=== PATIENT | female | born 1960 | race Caucasian/White ===

== ENCOUNTER → 2017-11-08 08:39 | Outpatient (POV) | payer BC, SELFPAY | PROVIDERS: PCP Family Medicine; Visit Provider Dermatology | DX: Z00.00 Encounter for general adult medical examination without abnormal findings (principal) ==

== ENCOUNTER → 2018-02-21 09:22 | Outpatient (CLI) | payer BC, SELFPAY ==
--- NOTE | 2018-02-21 09:28 | MM_ITS ---
MM Dig screening mamm BI w/CAD CAD Screening ORDERING PHYSICIAN : Shahzad Duran MD PATIENT AGE: 57 years GENDER: Female INDICATION: 57-year-old. Does taking female hormones. No new complaints. Noncontributory family history TECHNIQUE: Standard CC and MLO images were obtained. R2 CAD reviewed. COMPARISON: Previous mammograms: Left mammogram August: Bilateral mammogram November 2015, 2014 & 2013 & 2012, and right mammogram 2010 FINDINGS: Moderate density breast bilaterally with no dominant mass or suspicious calcifications either breast. Mild similar to previous study, one year recommended. RIGHT BREAST:No prominent findings. There is a small just over 4 mm area focal low density inferior right breast with irregular margins. On reviewing multiple previous studies I suspect more likely a summation shadow; likely similar feature & appearance dating back to 2012.- But this is density is slightly larger & more apparent today.. Also note Stable small calcification is posterior margin again noted as reference point. Difficult to exclude some small calcifications within this area on this MLO view. Recommend patient return for additional views.: ... Spot magnification 90 degree view... And spot nonmagnification MLO images.... & And since this area clearly seen on cc view would suggest nonmagnification Cc views, performed in both slight lateral & slight medial to mid axis of breast.. LEFT BREAST:No new findings Again small area nodularity at the medial left breast seen similar to December 2016 and 2014.. Pancreas slightly smaller today than on last years study. Compatible with small cyst seen here on 2016 ultrasound IMPRESSION: 1. RIGHT BREAST:. Recommend spot views of area noted at inferior right breast: Small just over 4 mm area of focal density with irregular margins at the inferior right breast on today's MLO view. May merely be a summation shadow but appears more focal and more evident today than previous studies.. Also Cannot exclude some tiny faint calcifications here.... Additional spot views recommended as prescribed in the text . 2. LEFT BREAST stable appearance. Follow-up left mammogram 1 year BI-RADS Category: 0 Need Additional Imaging Evaluaiton. RECOMMENDED FOLLOW-UP: IMM - IMMEDIATE FOLLOW-UP RECOMMENDED (A letter has been sent to the patient regarding results of the study.)
== END ==
PROVIDERS: PCP Family Medicine; Visit Provider Family Medicine
DX: Z12.31 Encounter for screening mammogram for malignant neoplasm of breast (principal)
CPT/HCPCS: 77067

== ENCOUNTER → 2018-03-04 14:18 | Outpatient (CLI) | payer BC, SELFPAY ==
--- NOTE | 2018-03-04 14:23 | MM_ITS ---
MM Dig mamm DX unilat RT CAD CAD Screening ORDERING PHYSICIAN : Shahzad Duran MD PATIENT AGE: 57 years GENDER: Female COMPARISON: Previous mammograms: 2016 2015 2014 INDICATION: New density inferior right breast. Questionable calcification here DIAGNOSTIC RIGHT MAMMOGRAM with Spot views: Technique: CC, MLO, magnification 90 degree and additional Spot performed. Findings: The small nodular density at the inferior right breast is less evident on today's spot views. I believe it was merely exaggerated by overlying densities and summation shadow the recent screening mammogram study. It appears compatible with older studies from 2016 and 2014. Can be followed in one year . No significant calcifications are seen here nor elsewhere at right breast However these added images do reveal new 5 mm round density at 12:00 central breast.- Ultrasound was performed to further evaluate this. & confirm small cyst. ========= ULTRASOUND RIGHT BREAST including axillary survey Ultrasound entire breast performed including a including evaluation lymph nodes at right axilla At 12:00 there is a small 5.4 mm ovoid benign-appearing cystic area. Smooth powell good through transmission of this matches the round density seen on today's additional mammogram views . Survey of the remainder the right breast shows no additional significant findings scattered benign axillary lymph nodes observed IMPRESSION: ---- 1. No area of concern inferior right breast. Follow-up in one year adequate Today's additional mammogram images decreased concern regarding the previously question density at the inferior right breast., This density was merely exaggerated by summation shadow on previous screening study. Follow-up in one year adequate 2. Small round 5.5 mm cyst at 12:00 is seen on mammogram and then subsequently confirmed on ultrasound. Benign feature not of concern BI-RADS Category: 2 Benign Finding(s) RECOMMENDED FOLLOW-UP: 1YR - 1 YEAR FOLLOW-UP (A letter has been sent to the patient regarding results of the study.)
== END ==
PROVIDERS: PCP Family Medicine; Visit Provider Family Medicine
DX: R92.8 Other abnormal and inconclusive findings on diagnostic imaging of breast (principal)
CPT/HCPCS: 76641; 77065

== ENCOUNTER → 2018-08-08 10:49 | Outpatient (CLI) | payer BC, SELFPAY ==
--- NOTE | 2018-08-08 10:52 | XR_ITS ---
EXAM: XR lumbar spine min 4V HISTORY: ITS.REASON: LOW BACK PAIN ORDERING PHYSICIAN: Shahzad Duran MD PATIENT AGE: 58 years COMPARISON: None FINDINGS: Minimal lumbar curvature convex left. There is mild degenerative disc disease at L4-5 and L5-S1 and there is 4 mm anterolisthesis of L4. No fracture or dislocation. No lytic or blastic change. Facet hypertrophy at L4-5 and L5-S1 IMPRESSION: Mild degenerative disc disease L4-L5 and L5-S1 with mild anterolisthesis of L4 with associated facet arthritic change
== END ==
PROVIDERS: PCP Family Medicine; Visit Provider Family Medicine
DX: M54.5 Low back pain (principal)
CPT/HCPCS: 72110

== ENCOUNTER → 2018-11-12 08:25 | Outpatient (POV) | payer BC, SELFPAY | PROVIDERS: Visit Provider Dermatology | DX: Z00.00 Encounter for general adult medical examination without abnormal findings (principal) ==

== ENCOUNTER → 2018-12-12 10:17 | Outpatient (CLI) | payer BC, SELFPAY ==
--- NOTE | 2018-12-12 10:23 | XR_ITS ---
XR shoulder LT min 2V HISTORY: ITS.REASON: ACUTE PAIN IN LT SHOULD ORDERING PHYSICIAN: Shahzad Duran MD PATIENT AGE: 58 years Comparison: None FINDINGS: No fracture or dislocation. No lytic or blastic change. There is normal mineralization. The joint spaces are well-preserved. No significant degenerative/arthritic changes. No erosive changes evident. IMPRESSION: Negative, no acute finding
== END ==
PROVIDERS: PCP Family Medicine; Visit Provider Family Medicine
DX: M25.512 Pain in left shoulder (principal)
CPT/HCPCS: 73030

== ENCOUNTER → 2019-03-07 15:18 | Outpatient (CLI) | payer BC, SELFPAY ==
--- NOTE | 2019-03-07 15:31 | MM_ITS ---
MM Dig screening mamm BI w/CAD CAD Screening COMPARISON: Digital mammograms with CAD 02/21/2018 and additional views right breast 03/04/2018 INDICATION: There is no personal or family history of breast cancer TECHNIQUE: Standard CC and MLO images were obtained. R2 CAD reviewed. FINDINGS: Moderate diffuse fibroglandular densities are seen in the central portions of both breast and the findings are bilateral and symmetrical. The nodular density seen just deep to the nipple the right breast on the previous additional views in February 2018 is less prominent. There is no new or suspicious lesion and there are no suspicious microcalcifications. IMPRESSION: Moderate diffuse breast density with no suspicious lesion seen BI-RADS Category: 1 Negative RECOMMENDED FOLLOW-UP: 1YR - 1 YEAR FOLLOW-UP (A letter has been sent to the patient regarding results of the study.)
--- NOTE | 2019-03-07 15:32 | US_ITS ---
US breast RT complete INDICATION: Follow-up abnormal ultrasound ORDERING PHYSICIAN: Shahzad Duran MD PATIENT AGE: 58 years COMPARISON: 03/04/2018 TECHNIQUE: Right breast ultrasound with axilla FINDINGS: There is a 4 mm cyst at 12:00 similar to the previous exam. No suspicious nodules evident. Small nodes are present in the axilla. IMPRESSION: Benign findings, 4 mm cyst at 12:00 BI-RADS Category: 2 Benign Finding(s) RECOMMENDED FOLLOW-UP: 1YR - 1 YEAR FOLLOW-UP (A letter has been sent to the patient regarding results of the study.)
== END ==
PROVIDERS: PCP Family Medicine; Visit Provider Family Medicine
DX: Z12.31 Encounter for screening mammogram for malignant neoplasm of breast (principal); N60.01 Solitary cyst of right breast
CPT/HCPCS: 76641; 77067

== ENCOUNTER → 2019-10-14 08:28 | Outpatient (CLI) | payer BC, SELFPAY ==
--- NOTE | 2019-10-14 08:36 | XR_ITS ---
PROCEDURE: XR DEXA AXIAL SKELETON CLINICAL HISTORY: POST MENOPAUSAL COMPARISON: No exams were available for comparison FINDINGS: L1-L4 density has a T-score -0.2 with a bone density of 1.18 grams/centimeters sq. Lowest density in the hips is in the left femoral neck at 0.889 grams/centimeters sq T-score -1 indicating osteopenia. IMPRESSION: Osteopenia with moderate fracture risk. Treatment advised. Suggest follow-up exam October 2021 Dictated by: Dean Lagos MD 10/14/2019 14:39 Electronically signed by Dean Lagos MD in [place] 10/14/2019 14:39
== END ==
PROVIDERS: PCP Family Medicine; Visit Provider Family Medicine
DX: Z13.820 Encounter for screening for osteoporosis (principal); Z78.0 Asymptomatic menopausal state; M85.89 Other specified disorders of bone density and structure, multiple sites
CPT/HCPCS: 77080

== ENCOUNTER → 2019-11-11 09:51 | Outpatient (POV) | payer BC, SELFPAY | PROVIDERS: Visit Provider Dermatology | DX: Z00.00 Encounter for general adult medical examination without abnormal findings (principal) ==

== ENCOUNTER → 2020-03-09 08:11 | Outpatient (CLI) | payer BC, SELFPAY ==
--- NOTE | 2020-03-09 08:29 | US_ITS ---
PROCEDURE: US BREAST RT COMPLETE CLINICAL INDICATION: CYST OF RIGHT BREAST COMPARISON: BREASTRT US breast RT complete from 03/07/2019 MM DIG SCREENING MAMM BI W/CAD from 03/09/2020 FINDINGS: There is a small hypoechoic cystic-appearing lesion at the 12 o'clock position near the nipple measuring 0.5 x 0.2 by 0.5 cm. There is a small hypoechoic lesion at the 11 o'clock position near the nipple measuring 0.6 by 0.5 x 0.2 cm with a few internal echoes and this may represent a complex cyst. There are 2 normal appearing nodes in the axilla. There is no suspicious solid lesion. IMPRESSION: Stable benign-appearing cyst as described with possible new benign-appearing but probable complex cyst without definite mammogram correlation of either lesion. Recommend the patient continue with yearly screening mammography Dictated by: Dr. Yan Rodriguez MD 03/16/2020 15:[address] Yan Rodriguez MD in [place] 03/16/2020 15:31
--- NOTE | 2020-03-09 08:29 | MM_ITS ---
PROCEDURE: MM DIG SCREENING MAMM BI W/CAD Digital Breast Tomosynthesis Included CLINICAL INDICATION: BREAST CANCER SCREENING There is no personal or family history of breast cancer. The patient recently stopped estrogen treatment 6 months ago COMPARISON: [facility] MM Dig screening mamm BI w/CAD from 02/21/2018 DXRT MM Dig mamm DX unilat RT CAD from 03/04/2018 DIG MAMM-SCREEN KEMAR from 03/07/2019 TECHNIQUE: Standard CC and MLO images and 3D Tomosynthesis was obtained. R2 CAD reviewed. FINDINGS: Moderate diffuse fibroglandular densities are seen in both breasts and the findings are bilateral and symmetrical. Jatinder images were reviewed. There is no suspicious lesion in either breast and no suspicious microcalcifications. IMPRESSION: Stable moderate breast density with no suspicious lesions seen BI-RAD Category: 1 Negative FOLLOW-UP: 1YR 1 Year Follow-up (A letter has been sent to the patient regarding results of the study.) Dictated by: Dr. Yan Rodriguez MD 03/09/2020 16:[address] Yan Rodriguez MD in [place] 03/09/2020 16:54
== END ==
PROVIDERS: PCP Family Medicine; Visit Provider Family Medicine
DX: Z12.31 Encounter for screening mammogram for malignant neoplasm of breast (principal); N60.01 Solitary cyst of right breast
CPT/HCPCS: 76641; 77063; 77067

== ENCOUNTER → 2020-03-23 10:55 | Outpatient (CLI) | payer BC, SELFPAY | PROVIDERS: Visit Provider Urology | DX: R31.0 Gross hematuria (principal) | CPT/HCPCS: 87086 ==

== ENCOUNTER → 2020-04-02 08:47 | Outpatient (CLI) | payer BC, SELFPAY ==
[2020-04-02 09:16] LABS: Blood Urea Nitrogen 24 mg/dl (7-17); Estimated Glomerular Filt Rate 73 ml/min (>60); GFR (African American) 89 ML/MIN (>60)
--- NOTE | 2020-04-02 09:26 | CT_ITS ---
PROCEDURE: CT ABDOMEN PELVIS WO/W CON CLINICAL INDICATION: hematuria Hematuria, UTIs COMPARISON: No exams were available for comparison TECHNIQUE: IV Contrast: 75ML OPTIRAY 350 Oral Contrast none Axial images obtained with sagittal and coronal reformats. All CT scans at the facility use one or more dose reduction, viz: automated exposure control, ma/kV adjustment per patient size (including targeted exams where dose is matched to indication, i.e. head), or iterative reconstruction technique. FINDINGS: LOWER THORAX: No acute finding ABDOMEN & PELVIS: The liver, spleen, adrenal glands, and pancreas have an unremarkable appearance. Unenhanced images show no obvious renal calculi. No ureteral calculi. No hydronephrosis. No renal mass or perinephric fluid collection. 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 There is a mild amount of retained colonic feces. No intestinal obstruction or free air. No evidence of appendicitis or diverticulitis. There has been a prior hysterectomy. Small sclerotic focus involves the right ilium laterally and 1 also of the right femoral neck suggesting small bone islands. There is mild levocurvature of the lumbar spine and there is 5 mm anterolisthesis with degenerative disc disease at L4 on L5. IMPRESSION: 1. No acute finding. No renal or ureteral calculi. 2. 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 Moderate amount of retained colonic feces. Dictated by: Dean Lagos MD 04/02/2020 10:26 Electronically signed by Dean Lagos MD in [facility] 04/02/2020 10:26
== END ==
PROVIDERS: PCP Family Medicine; Visit Provider Urology
DX: R31.0 Gross hematuria (principal)
CPT/HCPCS: 36415; 74178; 82565; 84520; Q9967

== ENCOUNTER → 2020-04-07 11:01 | Outpatient (CLI) | payer BC, SELFPAY ==
[2020-04-07 13:36] LABS: Coronavirus 19 IgG Antibody Negative (Negative)
[2020-04-07 13:37] LABS: Coronavirus 19 IgM Antibody Negative (Negative)
== END ==
PROVIDERS: Visit Provider Urology
DX: Z01.818 Encounter for other preprocedural examination (principal); R31.9 Hematuria, unspecified
CPT/HCPCS: 36415; 86328

== ENCOUNTER 2020-04-08 13:45 | Day surgery (SDC) | payer BC, SELFPAY ==
--- NOTE | 2020-04-06 09:18 | SUR.PREOP ---
04/06/2020. @ 6523--PHONE CALL MADE TO PATIENT. PATIENT UNDERSTANDS THAT LAB WORK AND COVID TESTING NEEDS TO BE COMPLETED @ 1100 on 04/07/2020. PATIENT UNDERSTANDS IF LAB WORK AND COVID-19 TESTS ARE NOT COMPLETED BY 12PM ON THAT DATE, THE SURGERY SCHEDULED WILL BE CANCELLED AND RESCHEDULED FOR ANOTHER TIME.
[2020-04-07 11:43] VITALS: BMI 20.9
[2020-04-08 14:06] VITALS: BP 157/89; PULSE 74; RESP 16; TEMP 36.8; O2SAT 99
[2020-04-08 14:50] VITALS: BP 148/79; PULSE 67; RESP 18; TEMP 36.8; O2SAT 100
--- NOTE | 2020-04-08 15:18 | HMH.OPNOTE ---
Date of procedure: 04/08/20 Pre-op Diagnosis:: Microhematuria Post-op Diagnosis:: Same Procedure performed:: Cystourethroscopy, flexible Surgeon:: Giovani Patton MD Anesthesia: local Estimated blood loss (mL): 0 Clinical Note:: 59-year-old white female with history of microscopic hematuria presents for cystoscopic evaluation today. 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 Operative findings:: Cystoscopic findings were normal Operative note:: Patient taken to the treatment room after informed consent was obtained. On the stretcher she was prepped and draped in the standard surgical fashion in the frog-leg position. 2% lidocaine placed into the urethra. After 5 minutes the flexible cystoscope introduced into the urethral meatus. Passed into the bladder without difficulty and the bladder examined in a systematic fashion. There is no evidence of mucosal normalities, stones, trabeculation or cellule formation. The ureteral orifices were in their normal anatomic position and clear reflux of urine was noted. The urethra was within normal limits as well as the bladder neck. Scope removed and patient tolerated procedure well without complication. Condition: stable Disposition: same day Specimens:: None Complications:: None
== END 2020-04-08 14:55 | disposition home or self-care (01) ==
LOC: OUTP 13:47
PROVIDERS: PCP Family Medicine; Visit Provider Urology
PROC: (CPT 52000; principal; 2020-04-08 14:30)
DX: R31.29 Other microscopic hematuria (principal); D17.79 Benign lipomatous neoplasm of other sites; Z88.2 Allergy status to sulfonamides; Z88.8 Allergy status to other drugs, medicaments and biological substances; Z91.048 Other nonmedicinal substance allergy status; Z79.82 Long term (current) use of aspirin; Z79.899 Other long term (current) drug therapy; M19.90 Unspecified osteoarthritis, unspecified site
CPT/HCPCS: 52000

== ENCOUNTER → 2020-06-25 11:14 | Outpatient (CLI) | payer BC, SELFPAY ==
--- NOTE | 2020-06-25 11:27 | ECG_ITS ---
APPROVED REPORT Exam: Resting ECG HR:79 bpm ECG Measurements Heart Rate 79 AXES NM 150 P 39 QRSd 92 QRS 85 QT 358 T 68 QTc 410 <Conclusion> Normal sinus rhythm RSR' or QR pattern in V1 suggests right ventricular conduction delay Borderline ECG Electronically signed by : Ruben Rosario, 06/25/2020 17:42:53
== END ==
PROVIDERS: PCP Family Medicine; Visit Provider Family Medicine
DX: R00.2 Palpitations (principal)
CPT/HCPCS: 93005

== ENCOUNTER → 2020-08-18 15:49 | Outpatient (CLI) | payer BC, SELFPAY ==
[2020-08-18 16:59] LABS: Basophils % 0.6 % (0.1-2.0); Eosinophils # 0.1 K/mm3 (0.0-0.4); Eosinophils % 1.4 % (0.1-12.0); Hematocrit 38.2 % (37.0-47.0); Hemoglobin 12.2 g/dL (12.2-16.2); Lymphocytes % 27.5 % (10-50); Mean Corpuscular HGB Conc 31.9 g/dL (31.8-35.4); Mean Corpuscular Hemoglobin 29.4 pg (27.0-31.2); Mean Corpuscular Volume 92.2 fl (81-99); Monocytes # 0.4 K/mm3 (0.1-1.0); Neutrophils # 4.7 K/mm3 (1.8-7.8); Neutrophils % 64.6 % (37.0-80.0); Platelet Count 290 K/mm3 (142-424); Red Blood Count 4.14 M/mm3 (4.20-5.40); Red Cell Distribution Width 12.7 % (11.5-17.5); White Blood Count 7.3 K/mm3 (4.8-10.8)
[2020-08-20 14:03] LABS: Covid-19 Nasal PCR Sendout Lex NOT DETECTED
== END ==
PROVIDERS: PCP Family Medicine; Visit Provider Family Medicine
DX: Z03.818 Encounter for observation for suspected exposure to other biological agents ruled out (principal)
CPT/HCPCS: 36415; 85025; 87581; 87633; 87798; U0004

== ENCOUNTER → 2020-12-07 09:22 | Outpatient (POV) | payer BC, SELFPAY | PROVIDERS: Visit Provider Dermatology | DX: Z00.00 Encounter for general adult medical examination without abnormal findings (principal) ==

== ENCOUNTER → 2021-01-18 10:18 | Outpatient (CLI) | payer BC, SELFPAY ==
--- NOTE | 2021-01-18 10:28 | XR_ITS ---
PROCEDURE: XR WRIST RT MIN 3V CLINICAL INDICATION: RT WRIST PAIN COMPARISON: No exams were available for comparison FINDINGS: No fracture or dislocation. No lytic or blastic change. There is normal mineralization. Osteoarthritic changes are present at the 1st metacarpal-carpal joint. Spurring is present involving the trapezium medially Other findings:None. 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
== END ==
PROVIDERS: PCP Family Medicine; Visit Provider Family Medicine
DX: M25.531 Pain in right wrist (principal)
CPT/HCPCS: 73110

== ENCOUNTER 2021-01-24 09:00 | Outpatient (RCR) | payer BC, SELFPAY ==
--- NOTE | 2020-12-20 11:05 | HMH.OTOPEV ---
OT Inpatient Evaluation Rehab OT Outpatient Eval Start: 12/20/20 10:31 Freq: Status: Active Protocol: Document 12/20/20 10:32 RMARSHALL (Rec: 12/20/20 11:02 [facility] [id number]) Electronically Signed By Abigail Hu OT 12/20/20 10:32 Outpatient Therapy Subjective History Subjective History Pt seen this date for skilled OT eval. Pt reports that she hyperextended her R thumb February 2020. Pt felt a pop during this event. Pt reports that her doctor has given her exercises and she has been wearing a R pre-arie thumb spica splint. Pt reports that her wrist range of motion is decreased. Pt reports that she experiences sharp pain in R wrist on radial aspect. Pt reports that she golfs frequently. She has not seen an orthopedic doctor yet; she has not had a MRI or X-ray yet . R Thumb AROM Short term goal: Abduction: 50 R Thumb AROM supervisor intermediates goal: Abduction: 70 R Thumb IP Short term goal: Flex:70 R thumb IP lobsterman goal: Flex: 80 Chief Complaint Pain Symptom Type Ache,Sharp,Tingling,Shooting Symptoms Relieved By Rest/Positioning,Brace/Support Symptoms Aggravated By Physical Activity,Lifting Prior Functional Limitations None Current Functional Limitations Lifting,Housework,Desk Work/ Reading,Driving,Sleeping Symptom Description Intermittent,Activity Dependent Level of pain today (0-10) 1 Pain scale - at its best (0-10) 1 Pain scale - at its worst (0-10) 5 Wrist/Hand Eval Wrist Range of Motion Right Wrist Limitations of Range of Motion Muscle Weakness,Pain Wrist Extension Active Range of Motion ( 50 degrees) Wrist Flexion Active Range of Motion ( 65 degrees) Wrist Radial Deviation Active Range of 10 Motion (degrees) Wrist Ulnar Deviation Active Range of 20 Motion (degrees) Thumb Range of Motion Right Thumb Metacarpophalangeal Flexion Active 50 Range of Motion (degrees) Thumb Metacarpophalangeal Extension 0 Active Range of Motion (degrees
== END 2021-01-24 09:05 | disposition home or self-care (01) ==
LOC: OT 09:00
PROVIDERS: PCP Family Medicine; Visit Provider Family Medicine
DX: M25.531 Pain in right wrist (principal)
CPT/HCPCS: 97014; 97035; 97110; 97140; 97164; 97166; G0283

== ENCOUNTER → 2021-03-14 09:56 | Outpatient (CLI) | payer BC, SELFPAY ==
--- NOTE | 2021-03-14 09:58 | MM_ITS ---
PROCEDURE: MM DIG SCREENING MAMM BI W/CAD Digital Breast Tomosynthesis Included CLINICAL INDICATION: SCREENING COMPARISON: MG DMDXUWAL DIG MAMM-DX UNI LT W/AVS W/CAD from 08/08/2017 MG [facility] MM Dig screening mamm BI w/CAD from 02/21/2018 MG DXRT MM Dig mamm DX unilat RT CAD from 03/04/2018 MG DIG MAMM-SCREEN KEMAR from 03/07/2019 MG MM DIG SCREENING MAMM BI W/CAD from 03/09/2020 TECHNIQUE: Standard CC and MLO images and 3D Tomosynthesis was obtained. R2 CAD reviewed. FINDINGS: The breasts are composed of heterogeneously dense fibroglandular tissue, may obscure small masses. There is a focal new asymmetric density noted in the right central breast, 6.5 centimeters behind the nipple, seen on MLO view. This focal area was not visualized on the cc view. Focal glandular asymmetric density noted in the left inner breast is unchanged compared to prior study. IMPRESSION: Asymmetric density in the right central breast on MLO view. BI-RAD Category: 0 Need Additional Imaging Evaluation FOLLOW-UP: Diagnostic mammogram with spot compression images and rolled views. Ultrasound if indicated. (A letter has been sent to the patient regarding results of the study.) Dictated by: Janie Castro 03/15/2021 09:05 Janie Castro in [place] 03/15/2021 09:05
== END ==
PROVIDERS: PCP Family Medicine; Visit Provider Family Medicine
DX: Z12.31 Encounter for screening mammogram for malignant neoplasm of breast (principal)
CPT/HCPCS: 77063; 77067

== ENCOUNTER → 2021-03-29 12:58 | Outpatient (CLI) | payer BC, SELFPAY ==
--- NOTE | 2021-03-29 13:03 | MM_ITS ---
PROCEDURE: MM DIG MAMM DX UNILAT RT CAD Digital Breast Tomosynthesis Included Right breast ultrasound complete CLINICAL INDICATION: ABN MAMM Follow-up asymmetric density COMPARISON: MG DIG MAMM-SCREEN KEMAR from 03/07/2019 US BREASTRT US breast RT complete from 03/07/2019 US US BREAST RT COMPLETE from 03/09/2020 MG MM DIG SCREENING MAMM BI W/CAD from 03/09/2020 MG MM DIG SCREENING MAMM BI W/CAD from 03/14/2021 US US BREAST RT COMPLETE from 03/29/2021 TECHNIQUE: Spot compression views and rolled CC views are obtained along with right breast ultrasound. FINDINGS: The asymmetric density is not redemonstrated on the spot compression views nor the rolled views. Right breast ultrasound: At 12 o'clock near the nipple there is a 5 mm hypoechoic nodule well-circumscribed wider than tall with some low level internal echoes which may be due to a complicated cyst not significantly changed. At 11 o'clock near the nipple there is a hypoechoic 5 x 4 mm nodule. There is some questionable posterior acoustical shadowing.. On the sagittal images the nodule is taller than wide. This does raise some concern as well as a posterior acoustical shadowing. Ultrasound-guided FNA suggested. IMPRESSION: Nodule noted on the mammogram is not demonstrated by ultrasound and appear to compress out on the spot compression views. Ultrasound of the right breast however demonstrates a suspicious nodule at 11 o'clock near the nipple taller than wide with some posterior acoustical shadowing. Suggest ultrasound-guided FNA for further evaluation. If the nodule does not aspirate then, core biopsy could be obtained at the same time. BI-RAD Category: 4 Suspicious Abnormality-Biopsy Considered FOLLOW-UP: BIO Biopsy Recommended (A letter has been sent to the patient regarding results of the study.) Dictated by: Dean Lagos MD 04/05/2021 08:41 Dean Lagos MD in [place] 04/05/2021 08:41
== END ==
PROVIDERS: PCP Family Medicine; Visit Provider Physician Assistant
DX: R92.8 Other abnormal and inconclusive findings on diagnostic imaging of breast (principal)
CPT/HCPCS: 76641; 77061; 77065; G0279

== ENCOUNTER → 2021-04-26 12:29 | Outpatient (CLI) | payer BC, SELFPAY ==
--- NOTE | 2021-04-26 12:37 | US_ITS ---
PROCEDURE: US FNA BREAST CLINICAL INDICATION: ABN MAMM COMPARISON: 03/29/2021 mammogram and ultrasound FINDINGS: Following obtaining informed consent and time-out procedure under aseptic conditions with ultrasound guidance and local anesthesia with 1 percent buffered lidocaine FNA was performed of the right breast nodule at 11 o'clock. No fluid was able to be obtained. Following this, core biopsy was performed x3 into the nodule with an 18 gauge spring-loaded biopsy needle.. Specimen given to pathology. The patient tolerated the procedure well without evidence of immediate complication. Cytology: Rare atypical ductal cells are identified. Suspicious finding. Pathology: Scant fibrous stroma and blood. No atypical ductal hyperplasia in situ or invasive carcinoma. IMPRESSION: Uneventful ultrasound-guided FNA and core biopsy of the right breast nodule at 11 o'clock. The findings are discordant with cytology findings suspicious and pathology findings showing no atypical hyperplasia carcinoma in situ or invasive carcinoma. The FNA and the core biopsy was performed at the same spot with sonographic guidance. Suggest short-term ultrasound follow-up. If the nodule enlarges then a mammotome or surgical biopsy could be considered Dictated by: Dean Lagos MD 05/11/2021 09:18 Dean Lagos MD in [place] 05/11/2021 09:18
== END ==
PROVIDERS: PCP Family Medicine; Visit Provider Family Medicine
DX: D48.61 Neoplasm of uncertain behavior of right breast (principal)
CPT/HCPCS: 10005

== ENCOUNTER → 2021-05-27 12:39 | Outpatient (CLI) | payer BC, SELFPAY ==
--- NOTE | 2021-05-27 12:44 | XR_ITS ---
PROCEDURE: XR CERVICAL SPINE 5V CLINICAL INDICATION: DISORDER OF THE NECK COMPARISON: No exams were available for comparison FINDINGS: No acute fractures or listhesis. Minor degenerative changes of the cervical spine noted with anterior osteophyte formation and facet joint arthropathy. Bone density is normal. Prevertebral soft tissues and the visualized lung apices are clear. IMPRESSION: No acute fractures or listhesis. Dictated by: Janie Castro 05/27/2021 13:40 Janie Castro in [facility] 05/27/2021 13:40
== END ==
PROVIDERS: PCP Family Medicine; Visit Provider Family Medicine
DX: M53.82 Other specified dorsopathies, cervical region (principal)
CPT/HCPCS: 72050

== ENCOUNTER 2021-08-24 09:00 | Outpatient (RCR) | payer BC, SELFPAY | END 2021-08-24 09:05 | disposition home or self-care (01) | LOC: PT 09:00 | PROVIDERS: PCP Family Medicine; Visit Provider Family Medicine | DX: M54.12 Radiculopathy, cervical region (principal); M47.812 Spondylosis without myelopathy or radiculopathy, cervical region | CPT/HCPCS: 97010; 97012; 97014; 97035; 97110; 97163; 97164; G0283 ==

== ENCOUNTER → 2021-09-14 13:03 | Outpatient (CLI) | payer BC, SELFPAY | PROVIDERS: PCP Family Medicine; Visit Provider Nurse Practitioner | DX: Z20.822 Contact with and (suspected) exposure to COVID-19 (principal); U07.1 COVID-19 | CPT/HCPCS: C9803; U0003; U0005 ==

== ENCOUNTER → 2021-10-25 10:30 | Outpatient (CLI) | payer BC, SELFPAY ==
--- NOTE | 2021-10-25 10:34 | US_ITS ---
PROCEDURE INFORMATION: Exam: US Right Breast, Complete Exam date and time: 10/25/2021 10:34 AM Age: 61 years old Clinical indication: Follow-up a biopsied right 11 o'clock axis mass TECHNIQUE: Imaging protocol: Complete ultrasound of all four quadrants of the Right breast and the retroareolar regions, including ultrasound of the axilla when performed. COMPARISON: SD US FNA BREAST 04/26/2021 1:24 PM FINDINGS: Breast: Sonographic images of the right breast including the retroareolar region, all 4 quadrants and the axilla demonstrates a stable hypoechoic mass in the 11 o'clock axis at the site of prior biopsy measuring 0.4 x 0.4 x 0.3 cm in dimension. 0.3 cm right 12 o'clock axis cyst. No architectural distortion or acoustical shadowing. No skin thickening or axillary adenopathy. IMPRESSION: Stable previously biopsied mass in the right 11 o'clock axis.Annual bilateral mammographic screening is recommended in April 2022 unless otherwise clinically indicated. ASSESSMENT: BI-RADS Category 2: Benign
== END ==
PROVIDERS: PCP Family Medicine; Visit Provider Family Medicine
DX: N60.01 Solitary cyst of right breast (principal)
CPT/HCPCS: 76641

== ENCOUNTER → 2021-12-06 11:11 | Outpatient (POV) | payer BC, SELFPAY | PROVIDERS: Visit Provider Dermatology | DX: Z00.00 Encounter for general adult medical examination without abnormal findings (principal) ==

== ENCOUNTER → 2022-04-25 08:23 | Outpatient (CLI) | payer BC, SELFPAY ==
--- NOTE | 2022-04-25 08:30 | MM_ITS ---
PROCEDURE INFORMATION: Exam: US Right Breast, Complete MG Bilateral Screening 3D Mammography Exam date and time: 04/25/2022 8:57 AM Age: 61 years old Clinical indication: Screening. History of benign right biopsy/aspiration of 11 o'clock mass. No family history of breast cancer. TECHNIQUE: Imaging protocol: Complete ultrasound of all four quadrants of the Right breast and the retroareolar regions, including ultrasound of the axilla when performed. Bilateral Screening tomosynthesis and 2D mammography including computer-aided detection (CAD) when performed. COMPARISON: US BREAST RT COMPLETE 10/25/2021 11:32 AM FINDINGS: MAMMOGRAPHY: Breast composition: The breasts are heterogeneously dense, which may obscure small masses. Mass: None. Architectural distortion: None. Calcifications: No suspicious calcifications. Asymmetric density: None. Skin thickening: None. Axillary adenopathy: None. ULTRASOUND: Right sonography, all 4 quadrants, retroareolar and axilla. At 12 o'clock 2 cm from the nipple, benign-appearing 0.4 cm cyst. At 11 o'clock 3 cm from the nipple, stable biopsied/aspirated hypoechoic mass measuring 0.3 by 0.2 by 0.2 cm. Sonographically unremarkable right axillary lymph node. IMPRESSION: No mammographic or sonographic evidence of malignancy. Annual screening is recommended unless otherwise clinically indicated. ASSESSMENT: Screening mammogram BIRADS: BI-RADS Category 1: Negative Overall BIRADS: BI-RADS Category 2: Benign
== END ==
PROVIDERS: PCP Family Medicine; Visit Provider Family Medicine
DX: Z12.31 Encounter for screening mammogram for malignant neoplasm of breast (principal); N60.01 Solitary cyst of right breast; M85.89 Other specified disorders of bone density and structure, multiple sites
CPT/HCPCS: 76641; 77063; 77067

== ENCOUNTER → 2022-04-28 08:55 | Outpatient (CLI) | payer BC, SELFPAY ==
--- NOTE | 2022-04-28 08:58 | XR_ITS ---
FINAL REPORT TECHNIQUE: Bone mineral density was calculated of the lumbar spine and hip. CLINICAL HISTORY: post menopausal COMPARISON: October 14, 2019 FINDINGS: Using L1-4, the bone mineral density of the spine is 0.966 g/cm2, corresponding to T-score of -0.7, which is a decrease in bone mineral density of 8.3% from prior. Using the left hip, the bone mineral density of the femoral neck is 0.656 g/cm2, corresponding to a T-score of -1.7, which is a decrease in bone mineral density of 7.4% from prior. Based on FRAX data, major osteoporotic fracture risk is 8.6%. NOTE: T-score: Standard deviation compared with peak bone mass of young adult mean. *Following the recommendations of the International Society of Bone densitometry, classification of hip BMD is based on the lower of two T-scores; total hip or femoral neck. IMPRESSION: Diminished bone mineral density of the lumbar spine and left hip consistent with osteopenia. Reviewed, Interpreted and Dictated by Bravo Tian III, MD Transcribed by Marj Bee Authenticated and [facility]
== END ==
PROVIDERS: PCP Family Medicine; Visit Provider Family Medicine
DX: Z78.0 Asymptomatic menopausal state (principal)
CPT/HCPCS: 77080

== ENCOUNTER → 2022-06-28 09:08 | Outpatient (CLI) | payer BC, SELFPAY | PROVIDERS: PCP Family Medicine; Visit Provider Surgery | DX: Z01.812 Encounter for preprocedural laboratory examination (principal); Z20.822 Contact with and (suspected) exposure to COVID-19; Z12.11 Encounter for screening for malignant neoplasm of colon | CPT/HCPCS: C9803; U0003; U0005 ==

== ENCOUNTER 2022-06-30 08:22 | Day surgery (SDC) | payer BC, SELFPAY ==
[2022-06-26 11:21] VITALS: BMI 22.2
[2022-06-30 08:35] VITALS: BP 164/98; PULSE 87; RESP 17; TEMP 36.6; O2SAT 98
[2022-06-30 09:40] VITALS: O2SAT 97
--- NOTE | 2022-06-30 09:47 | EXP.ANES.CKL ---
PFSH PFSH Medical History Arthritis Surgical History H/O: hysterectomy Family History Other Diabetes Hypertension Social History Smoking Status: Never smoker second hand exposure: No alcohol intake: never substance use type: denies use current occupational status: retired Travel in the last 8 weeks: None household members: spouse housing: house current occupational exposures/hazards: No caffeine: Yes
--- NOTE | 2022-06-30 10:33 | HMH.SCOPE ---
Procedure: Date: 06/30/22 Patient Date of :: 1960 Procedure Performed:: Colonoscopy with polypectomy using snare and biopsy Indications:: Patient is a 62-year-old female who had undergone previous screening colonoscopy about 10 years ago. She is referred for follow-up screening colonoscopy. Performing Provider:: Bravo Rivas MD Referring Provider:: Shahzad Duran MD Sedation:: MAC sedation Procedure:: Patient was taken to endoscopy procedure room. She was positioned in lateral decubitus position. Adequate intravenous sedation was achieved with anesthesia titration propofol. Variable stiffness Olympus colonoscope was inserted via the anus. Was advanced to the cecum. Colonic preparation was good. Ileocecal valve and appendiceal orifice were clearly identified. Colonoscope was advanced a short distance into the terminal ileum which was grossly normal. Colonoscope was slowly withdrawn through the colon with careful surveillance. Several polyps were encountered. These were removed by a variety of technique. Please see findings below. The most prominent polyp was approximately a 4 to 5 mm sessile polyp at the hepatic flexure. In the rectum there was evidence of some prominent mucosa and several cold biopsies were obtained. Retroflexion within the rectum revealed nonbleeding prolapsing hemorrhoid. Colonoscope was withdrawn. Findings:: 4 to 5 mm polyp at the hepatic flexure Diminutive descending colon polyp removed with cold snare Hyperplastic appearing distal sigmoid polyp x2 removed with cold snare, 1 retrieved Multiple hyperplastic appearing rectosigmoid polyps, 4, removed with cold snare Multiple rectal polyps, 7, appearing hyperplastic, 2 removed with snare and 5 removed with forceps. Prominent mucosa distal rectum multiple cold biopsies obtained Internal hemorrhoids Recommendations:: Follow-up colonoscopy pending pathology Complications:: None immediately apparent Estimated blood obtained (mL): 2
[2022-06-30 10:36] VITALS: BP 102/69; PULSE 74; RESP 16; TEMP 36.2; O2SAT 98
[2022-06-30 10:46] VITALS: BP 106/65; PULSE 64; RESP 16; O2SAT 97
[2022-06-30 10:56] VITALS: BP 113/78; PULSE 62; RESP 16; O2SAT 98
[2022-06-30 11:06] VITALS: BP 129/78; PULSE 58; RESP 16; O2SAT 98
== END 2022-06-30 11:06 | disposition home or self-care (01) ==
PROVIDERS: PCP Family Medicine; Visit Provider Surgery
PROC: 0DJD8ZZ Inspection of Lower Intestinal Tract, Via Natural or Artificial Opening Endoscopic (ICD-10-PCS; CPT 45380; principal; 2022-06-30 09:30)
DX: Z12.11 Encounter for screening for malignant neoplasm of colon (principal); K63.5 Polyp of colon
CPT/HCPCS: 45380; 45385; J2704

== ENCOUNTER → 2022-11-21 09:46 | Outpatient (POV) | payer BC, SELFPAY | PROVIDERS: Visit Provider Dermatology | DX: Z00.00 Encounter for general adult medical examination without abnormal findings (principal) ==

== ENCOUNTER → 2023-04-27 10:48 | Outpatient (CLI) | payer BC, SELFPAY ==
--- NOTE | 2023-04-27 10:52 | MM_ITS ---
PROCEDURE INFORMATION: Exam: MG Bilateral Screening 3D Mammography Exam date and time: 04/27/2023 10:41 AM Age: 62 years old Clinical indication: Screening. No family history of breast cancer. TECHNIQUE: Imaging protocol: Bilateral Screening tomosynthesis and 2D mammography including computer-aided detection (CAD) when performed. COMPARISON: 1. MG MM DIG SCREENING MAMM BI W/CAD 04/25/2022 8:26 AM 2. MG MM DIG MAMM DX UNILAT RT CAD 03/29/2021 1:02 PM 3. MG MM DIG SCREENING MAMM BI W/CAD 03/14/2021 10:05 AM 4. MG MM DIG SCREENING MAMM BI W/CAD 03/09/2020 8:31 AM FINDINGS: MAMMOGRAPHY: Breast composition: The breasts are heterogeneously dense, which may obscure small masses. Mass: None. Architectural distortion: None. Calcifications: No suspicious calcifications. Asymmetric density: None. Skin thickening: None. Axillary adenopathy: None. IMPRESSION: No mammographic evidence of malignancy. Annual screening is recommended unless otherwise clinically indicated. ASSESSMENT: BI-RADS Category 1: Negative
== END ==
PROVIDERS: PCP Family Medicine; Visit Provider Family Medicine
DX: Z12.31 Encounter for screening mammogram for malignant neoplasm of breast (principal)
CPT/HCPCS: 77063; 77067

== ENCOUNTER 2023-11-21 16:24 | Outpatient (CLI) | payer BC, SELFPAY | END 2023-11-21 23:59 | PROVIDERS: PCP Family Medicine; Visit Provider Family Medicine | DX: R00.2 Palpitations (principal) | CPT/HCPCS: 93270 ==

== ENCOUNTER 2024-01-29 10:36 | Outpatient (POV) | payer BC, SELFPAY | END 2024-01-29 23:59 | disposition home or self-care (01) | LOC: SC 10:36 | PROVIDERS: PCP Family Medicine; Visit Provider Dermatology | DX: Z00.00 Encounter for general adult medical examination without abnormal findings (principal) ==

== ENCOUNTER 2024-04-30 07:55 | Outpatient (CLI) | payer BC, SELFPAY ==
--- NOTE | 2024-04-30 08:00 | MM_ITS ---
PROCEDURE INFORMATION: Exam: MG Bilateral Screening 3D Mammography Exam date and time: 04/30/2024 7:55 AM Age: 63 years old Clinical indication: Screening examination TECHNIQUE: Imaging protocol: Bilateral Screening tomosynthesis and 2D mammography including computer-aided detection (CAD) when performed. COMPARISON: 1. MG MM DIG SCREENING MAMM BI W/CAD 04/27/2023 10:41 AM 2. MG MM DIG SCREENING MAMM BI W/CAD 04/25/2022 8:26 AM FINDINGS: MAMMOGRAPHY: Breast composition: There are scattered areas of fibroglandular density. Mass: None. Architectural distortion: None. Calcifications: No suspicious calcifications. Asymmetric density: None. Skin thickening: None. Axillary adenopathy: None. IMPRESSION: No mammographic evidence of malignancy. Annual screening is recommended unless otherwise clinically indicated. ASSESSMENT: BI-RADS Category 1: Negative
== END 2024-04-30 23:59 | disposition home or self-care (01) ==
LOC: RAD 07:55
PROVIDERS: PCP Family Medicine; Visit Provider Family Medicine
DX: Z12.31 Encounter for screening mammogram for malignant neoplasm of breast (principal)
CPT/HCPCS: 77063; 77067

== ENCOUNTER 2024-05-20 13:43 | Outpatient (POV) | payer BC, SELFPAY | END 2024-05-20 23:59 | disposition home or self-care (01) | LOC: SC 13:43 | PROVIDERS: PCP Family Medicine; Visit Provider Dermatology | DX: Z00.00 Encounter for general adult medical examination without abnormal findings (principal) ==

== ENCOUNTER 2025-05-06 08:19 | Outpatient (CLI) | payer MEDICARE, SELFPAY ==
--- OUTSIDE RECORDS SUMMARY | 2024-10-13 05:15 | XMS_ITS ---
Author Organization [facility] Address [address] [place] [id number] Care Team Providers Care Pest Control Specialist Name Role Phone Shahzad Duran Primary Care Provider [phone] Allergies Allergen (clinical drug ingredient) Drug/Non Drug Allergy documented on EMR Reaction Allergy Type Onset Date Status sulfamethoxazole / trimethoprim Bactrim DS rash Drug Allergy Active Neosporin Unknown Drug Allergy Active Results Component Value Reference Range Notes Glucose (In-House) Reviewed date:10/14/2024 10:31:52 AM Interpretation:101 Performing Lab: Notes/Report: 101 blood glucose 101 74 - 106 mg/dL Glycohemoglobin A1c (in hous e) Reviewed date:10/14/2024 10:31:52 AM Interpretation:5.6 Performing Lab: Notes/Report: 5.6 glycohemoglobin 5.6% 5 - 6.5 % P-Comprehensive Metabolic Pa jo-ann (CMP) Reviewed date:10/14/2024 10:31:52 AM Interpretation:gluc 107 Performing Lab: Notes/Report: Test performed by [facility] [address] [facility] , [address], [place] [address] Morro Macias MD, [employer] CLIA: [id number] Sodium 142 135-145 mmol/L Potassium 4.3 3.5-5.3 mmol/L Chloride 106 97-108 mmol/L CO2 28 22-32 mmol/L Glucose 107 65-99 mg/dL BUN 16 8-23 mg/dL Creatinine 0.69 0.50-1.00 mg/dL Calcium 9.6 8.6-10.4 mg/dL eGFR by Creatinine 96 >59 mL/min/1.73m2 Protein 6.8 6.0-8.3 g/dL Albumin 4.6 3.5-5.3 g/dL Alkaline Phosphatase 102 35-121 IU/L ALT (SGPT) 12 <5-47 IU/L AST (SGOT) 20 <5-40 IU/L Bilirubin, Total 0.2 <0.2-1.2 mg/dL A/G Ratio 2.1 1.1-2.5 P-T4 Free (thyroxine) Reviewed date:10/14/2024 10:31:52 AM Interpretation:Normal Performing Lab: Notes/Report: Test performed by [facility] [address] [place] [address] , [place] [address] Morro Macias MD, [employer] CLIA: [id number] Thyroxine Free (free T4) 1.02 0.86-1.76 ng/dL P-Lipid Panel Reviewed date:10/14/2024 10:31:52 AM Interpretation:chol 233, non-hdl 145, ldl 130 Performing Lab: Notes/Report: Test performed by [facility] [address] [place], [place] [address], [place] [address] Morro Macias MD, [employer] CLIA: [id number] Cholesterol 233 <200 mg/dL Triglycerides 74 <150 mg/dL HDL Cholesterol 88 >39 mg/dL Cholesterol / HDL Ratio 2.65 0.00-4.44 Ratio Non-HDL Cholesterol 145 <130 mg/dL LDL Cholesterol (Calculation) 130 <130 mg/dL LDL Cholesterol Levels* Less than 100 mg/dL Optimal 100 to 129 mg/dL Near Optimal/ Above Optimal 130 to 159 mg/dL Borderline High 160 to 189 mg/dL High 190 mg/dL and above Very High * Categories as recommended by the 2004 ATPIII guidelines LDL/HDL Ratio 1.5 <3.3 Ratio LDL Cholesterol Patient History Test Date: 10/13/2024 LDL Results: 130 Units: mg/dL % Change: - P-TSH Reviewed date:10/14/2024 10:31:52 AM Interpretation:6.52 Performing Lab: Notes/Report: Test performed by [facility] [address] [place] [address] [place] [address] Morro Macias MD, [employer] CLIA: [id number] TSH 6.52 0.43-5.25 mU/L P-Microalbumin/Creatinine, R andom Urine Sample Reviewed date:10/14/2024 10:31:52 AM Interpretation:satisfactory Performing Lab: Notes/Report: Test performed by [facility] [address] [place] [address] , [address], [place] [address] Morro Macias MD, [employer] Operator CLIA: [id number] Albumin/Creatinine Ratio, Urine See Comment 0-30 ug/mg Unable to calculate Urine Albumin/Creatinine Ratio when urine creatinine or urine albumin fall outside established reportable range. Microalbumin, Urine, Random <0.3 Creatinine, Urine 52.5 REASON FOR VISIT 6 months Medications Medication SIG (Take, Route, Frequency, Duration) Notes Start Date End Date Status Nasacort Allergy 24HR 55 MCG/ACT 2 sprays Use two sprays in each nostril at bedtime 07/29/2012 Active Loratadine 10 MG 1 tablet Orally Once a day; Duration: 30 day(s) Active Losartan Potassium 50 MG 1 tablet Orally Once a day 07/15/2024 Active Immunizations Vaccine Route Administration Date Status Comme nts PNEUMOVAX 23 VACCINE IM Intramuscular 10/13/2024 Administe red Vital Signs Weight 127.8 lbs 10/13/2024 Blood pressure systolic 126 mm Hg 10/13/20 24 Blood pressure diastolic 82 mm Hg 024 Heart Rate 77 /min 10/13/2024 Height 66 in 10/13/2024 BMI 20.63 kg/m2 10/13/2024 Encounters Encounter Location Date Provider Diagnosis [facility] [address] [facility] [address] [facility] [address] [place] [id number] 10/13/2024 Shahzad Duran Essential hypertensi on I10 ; Hyperlipidemia, unspecified hyperlipidemia type E78.5 ; IFG (impaired fasting glucose) R73.01 ; Acquired hypothyroidism E03.9 and Encounter for immunization Z23 Assessments Encounter Date Diagnosis (ICD Code) Assessment Notes Treatment Notes Treatment Clinical Notes Section Notes 10/13/2024 Essential hypertension (ICD-10 - I10) 10/13/2024 Hyperlipidemia, unspecified hyperlipidemia type (ICD-10 - E78.5) 10/13/2024 IFG (impaired fasting glucose) (ICD-10 - R73.01) 10/13/2024 Acquired hypothyroidism (ICD-10 - E03.9) 10/13/2024 Encounter for immunization (ICD-10 - Z23) Plan Of Treatment Medication Medication Name Sig Start Date Stop Date Notes Losartan Potassium 50 MG 1 tablet Orally Once a day 2023 Next Appt Details Follow Up: 6 Months, Reason: Provider Name:Shahzad Whittington , 10/13/2025 09:30:00 AM, [address] [facility] [address] [facility], [address], [place], [id number], Progress Notes * ARIS REYESEDOB:1960 (64 yo F)Acc No.[id number]:10/13/2024 Progress Notes Patient: PAULINE TERRY Provider: Krys Duran M.D. :1960 A ge:64 Y S ex:Female Date:10/13/2024 Address:[address] [place] [address], [id number] Subjective: * Chief Complaints: * 1 . 6 months. * HPI: C ardiology: 64 year old female presents with c/o Blood Pressure Elevated?Pt here for 6 mo f/u on hypertension, states she is doing well and does not have any concerns.? c/o Hyperlipidemia P t is fasting today. E ndocrinology: c/o Hypothyroidism P t here to f/u. * ROS: D ERMATOLOGY: no R srinivasan. n o H felix. G ASTROENTEROLOGY: no N ausea. n o V omiting. U ROLOGY: no D ifficulty urinating. n o B lood in urine. 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 * Surgical History: C olposcopy 1994, Hysterectomy 06/27/2010, Colonoscopy 11/2011, Scope of Bladder 04/2020. * Hospitalization/Major Diagno stic Procedure: D enies Past Hospitalization. * Family History: F ather: alive. M other: . 1 brother(s) , 3 sister(s) - healthy. 1 son(s) - healthy. . * Social History: C URRENT TOBACCO USE S moking Status: Patient does NOT smoke. C affeine: no. Marital Status: . Past smoking status: no, Smoking status: Does not smoke. Alcohol: no. * Medications: T aking Loratadine 10 MG Tablet 1 tablet Orally Once a day , Taking Nasacort Allergy 24HR 55 MCG/ACT Aerosol 2 sprays Use two sprays in each nostril at bedtime , Taking Losartan Potassium 50 MG Tablet 1 tablet Orally Once a day , Discontinued Betamethasone Dipropionate Aug 0.05 % Cream 1 application Externally Two times a day , Medication List reviewed and reconciled with the patient * Allergies: B actrim DS: rash - Allergy, Neosporin: Allergy. Objective: * Vitals: W t:127.8, Temp:98.1, BP:126/82, HR:77, Nurse:ester, Ht: 66, BMI:20.63. * Examination: C ardiology: General Appearance: p leasant, NAD. H EENT: u nremarkable. H eart sounds: R RR, normal S1, S2. L ungs: c lear, no rales or wheezes.?Extremities: n o leg edema. Assessment: * Assessment: 1. E ssential hypertension - I10 (Primary) 2 . H yperlipidemia, unspecified hyperlipidemia type - E78.5 3 . I FG (impaired fasting glucose) - R73.01 ? 4 . A cquired hypothyroidism - E03.9 5 . E ncounter for immunization - Z23 Plan: * Treatment: Value Reference Range A /G Ratio 2.1 1.1-2.5 - * A lbumin 4.6 3.5-5.3 - g/dL * A lkaline Phosphatase 102 35-121 - IU/L * A LT (SGPT) 12 <5-47 - IU/L * A ST (SGOT) 20 <5-40 - IU/L * B ilirubin, Total 0.2 <0.2-1.2 - mg/dL * B UN 16 8-23 - mg/dL * C alcium 9.6 8.6-10.4 - mg/dL * C hloride 106 97-108 - mmol/L * C O2 28 22-32 - mmol/L * C reatinine 0.69 0.50-1.00 - mg/dL * G lucose 107 H 65-99 - mg/dL * P otassium 4.3 3.5-5.3 - mmol/L * S odium 142 135-145 - mmol/L * P rotein 6.8 6.0-8.3 - g/dL * e GFR by Creatinine 96 >59 - mL/min/1.73m2 * Nette Jordan 10/14/2024 10:3 1:44 AM >See phone encounter ?LAB: P-Microalbumin/Creatinine, Random Urine Sample (Collection Date & Time - 10/13/2024 09:39 AM)?satisfactory* Value Reference Range A lbumin/Creatinine Ratio, Urine See Comment L 0-30 - ug /mg * C reatinine, Urine 52.5 - mg/dL * M icroalbumin, Urine, Random <0.3 - mg/dL * Nette Jordan 10/14/2024 10:3 1:44 AM >See phone encounter 2.?Hyperlipidemia, unspecified hyperlipidemia type?LAB: P-Comprehensive Metabolic Panel (CMP) (Collection Date & Time - 10/13/2024 09:39 AM)?gluc 107* Value Reference Range A /G Ratio 2.1 1.1-2.5 - * A lbumin 4.6 3.5-5.3 - g/dL * A lkaline Phosphatase 102 35-121 - IU/L * A LT (SGPT) 12 <5-47 - IU/L * A ST (SGOT) 20 <5-40 - IU/L * B ilirubin, Total 0.2 <0.2-1.2 - mg/dL * B UN 16 8-23 - mg/dL * C alcium 9.6 8.6-10.4 - mg/dL * C hloride 106 97-108 - mmol/L * C O2 28 22-32 - mmol/L * C reatinine 0.69 0.50-1.00 - mg/dL * G lucose 107 H 65-99 - mg/dL * P otassium 4.3 3.5-5.3 - mmol/L * S odium 142 135-145 - mmol/L * P rotein 6.8 6.0-8.3 - g/dL * e GFR by Creatinine 96 >59 - mL/min/1.73m2 * Nette Jordan 10/14/2024 10:3 1:44 AM >See phone encounter ?LAB: P-Lipid Panel (Collection Date & Time - 10/13/2024 09:39 AM)?chol 233, non-hdl 145, ldl 130* Value Reference Range C holesterol / HDL Ratio 2.65 0.00-4.44 - Ratio * C holesterol 233 H <200 - mg/dL * H DL Cholesterol 88 >39 - mg/dL * L DL Cholesterol (Calculation) 130 H <130 - mg/d L * L DL/HDL Ratio 1.5 <3.3 - Ratio * N on-HDL Cholesterol 145 H <130 - mg/dL * T riglycerides 74 <150 - mg/dL * Nette Jordan 10/14/2024 10:3 1:44 AM >See phone encounter 3.?IFG (impaired fasting glucose)?LAB: Glucose (In-House) (Collection Date & Time - 10/13/2024)?101* Value Reference Range b lood glucose 101 74 - 106 mg/dL * YadielMarcy 10/13/2024 10:12:2 1 AM > Nette Jordan 10/14/2024 10:31:44 AM >See phone encounter ?LAB: Glycohemoglobin A1c (in house) (Collection Date & Time - 10/13/2024)? 5.6* Value Reference Range g lycohemoglobin 5.6% 5 - 6.5 % * Marcy Cotto 10/13/2024 10:15:1 6 AM > Nette Jordan 10/14/2024 10:31:44 AM >See phone encounter 4.?Acquired hypothyroidism?LAB: P-T4 Free (thyroxine) (Collection Date & Time - 10/13/2024 09:39 AM)? Normal* Value Reference Range T hyroxine Free (free T4) 1.02 0.86-1.76 - ng/d L * Nette Jordan 10/14/2024 10:3 1:44 AM >See phone encounter ?LAB: P-TSH (Collection Date & Time - 10/13/2024 09:39 AM)?6.52* Value Reference Range T SH 6.52 H 0.43-5.25 - mU/L * Nette Jordan 10/14/2024 10:3 1:44 AM >See phone encounter * Immunizations: PNEUMOVAX 23 VACCINE : 0.5 mL (Route: Intramuscular) given by Marcy Cotto on Right Deltoid (Encounter for immunization) * Procedure Codes: G 2211 Complex e/[place], [address] GLUCOSE TEST, 04015 GLYCATED HEMOGLOBIN TEST, Modifiers: QW , 17305 VENIPUNCT, ROUTINE* * Follow Up: 6 Months * Images: Billing Information: * Visit Code: 68014 Office Visit, Est Pt., Level 4. * Procedure Codes: G2211 Complex e/[place]. [address] GLUCOSE TEST. 51365 GLYCATED HEMOGLOBIN TEST. Modifiers: QW 51059 VENIPUNCT, ROUTINE*. * Electronic signature of Marissa Duran MD on 05/06/2025 at 08:21 AM EDT Sign off status: Pending * Provider: Krys Duran M.D. Date: 12/14/2023 Generated for Thai ng/Mirza/eTransmitting on: 0 05/06/2025 08:21 AM EDT History and Physical Notes * HPI (History of Present Illness) Category Sub-Category Detail Notes Category Not es Endocrinology Hypothyroidism Pt here to f/u Cardiology Blood Pressure Elevated Pt here for 6 mo f/u on hypertension, states she is doing well and does not have any concerns Hyperlipidemia Pt is fasting today Examination Category Sub-Category Detail Notes Category Not es Cardiology Lungs: clear, no rales or wheezes HEENT: unremarkable Heart sounds: RRR, normal S1, S2 Extremities: no leg edema General Appearance: pleasant, NAD
--- OUTSIDE RECORDS SUMMARY | 2024-12-22 07:00 | XMS_ITS ---
[facility] Address [address] [facility] [address] [place] [id number] Care Team Providers Care Sand Carrier Name Role Phone Shahzad Duran Primary Care Provider Allergies Allergen (clinical drug ingredient) Drug/Non Drug Allergy documented on EMR Reaction Allergy Type Onset Date Status sulfamethoxazole / trimethoprim Bactrim DS rash Drug Allergy Active Neosporin Unknown Drug Allergy Active Results Component Value Reference Range Notes Influenza Screen (in house) Reviewed date:12/22/2024 05:23:26 PM Interpretation: Performing Lab: Notes/Report: results Pos A Covid test (in house) Reviewed date:12/22/2024 05:23:34 PM Interpretation: Performing Lab: Notes/Report: Result: Neg REASON FOR VISIT Possible Bronchitis Medications Medication SIG (Take, Route, Frequency, Duration) Notes Start Date End Date Status Tamiflu 75 MG 1 capsule Orally Twi ce a day; Duration: 5 day(s) 12/22/2024 Active Losartan Potassium 50 MG 1 tablet Orally Once a day 07/15/2024 Active Ofloxacin 0.3 % 1 drop in each eye Ophthalmic every 6 hours 12/06/2024 Active Loratadine 10 MG 1 tablet Orally Once a day; Duration: 30 day(s) Active Nasacort Allergy 24HR 55 MCG/ACT 2 sprays Use two sprays in each nostril at bedtime 07/29/2012 Active Vital Signs Weight 139.4 lbs 12/22/2024 Blood pressure systolic 130 mm Hg 12/22/19 25 Blood pressure diastolic 80 mm Hg 025 Heart Rate 70 /min 12/22/2024 Height 66 in 12/22/2024 BMI 22.50 kg/m2 12/22/2024 Encounters Encounter Location Date Provider Diagnosis [facility] [address] [facility] [address] [facility] [address] [place] [id number] 12/22/2024 Shahzad Duran Influenza A J 10.1 Assessments Encounter Date Diagnosis (ICD Code) Assessment Notes Treatment Notes Treatment Clinical Notes Section Notes 12/22/2024 Influenza A (ICD-10 - J10.1) Plan Of Treatment Medication Medication Name Sig Start Date Stop Date Notes Tamiflu 75 MG 1 capsule Orally Twi ce a day; Duration: 5 day(s) 12/22/2024 Next Appt Details Follow Up: prn, Reason: Provider Name:Shahzad Whittington ry, 10/13/2025 09:30:00 AM, [address] [facility] [address] [facility], [address], [place], [place], [id number], Progress Notes * ARIS REYESPADMINIOB:1960 (64 yo F)Acc No.[id number]:12/22/2024 Progress Notes Patient: PAULINE TERRY Provider: Krys Duran M.D. :1960 A ge:64 Y S ex:Female Date:12/22/2024 Address:[address] [place] [address] [id number] Subjective: * Chief Complaints: * 1 . Possible Bronchitis. * HPI: E NT/respiratory: 64 year old female presents with c/o cough P t complains of dry without any sputum production cough for 2 days. Pt states she has had chest congestion, chills and bodyaches as well. * ROS: D ERMATOLOGY: no R srinivasan. n o H felix. G ASTROENTEROLOGY: no N ausea. n o V omiting. U ROLOGY: no D ifficulty urinating. n o B lood in urine. 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 Objective: * Vitals: W t:139.4, Temp:98.3, BP:130/80, HR:70, O2 Sat:98% on RA, Nurse:ester, Ht: 66, BMI:22.50. * Examination: E NT/Respiratory: General Appearance: N AD. E yes: P ERRLA, sclera clear. N iris : n o cervical lymphadenopathy. H eart : R RR, normal S1 S2. L ungs:?clear to auscultation bilaterally. Assessment: * Assessment: 1. I cleo A - J10.1 (Primary) Plan: * Treatment: Value Reference Range r esults Pos A * Marcy Cotto 12/22/2024 11:53:3 2 AM > , Provider reviewed results while patient in office. ?LAB: Covid test (in house) (Collection Date & Time - 12/22/2024)* Value Reference Range R esult: Neg * Marcy Cotto 12/22/2024 11:53:5 3 AM > , Provider reviewed results while patient in office. * Procedure Codes: G 2211 Complex e/[place], [address] [place], [address] Flu Test- Nasal Swab, Modifiers: QW , 49448 COVID TEST IN HOUSE, Modifiers: QW , 3075F SYST BP GE 130 - 139MM HG, 3079F DIAST BP 80-89 MM HG * Follow Up: p rn * Images: Billing Information: * Visit Code: 27538 Office Visit, Est Pt., Level 3. * Procedure Codes: G2211 Complex e/[place] [address] [place] [address] Flu Test- Nasal Swab. Modifiers: QW 96467 COVID TEST IN HOUSE. Modifiers: QW 3075F SYST BP GE 130 - 139MM HG. 3079F DIAST BP 80-89 MM HG. * Electronic signature of Marissa Duran MD on 05/06/2025 at 08:21 AM EDT Sign off status: Pending * Provider: Krys Duran M.D. Date: 0 12/22/2024 Generated for Ike webster/Mirza/eTransmitting on: 0 05/06/2025 08:21 AM EDT History and Physical Notes * HPI (History of Present Illness) Category Sub-Category Detail Notes Category Not es ENT/respiratory cough Pt complains of dry without any sputum production cough for 2 days. Pt states she has had chest congestion, chills and bodyaches as well Examination Category Sub-Category Detail Notes Category Not es ENT/Respiratory Neck : no cervical lymphadenopat hy Heart : RRR, normal S1 S2 Lungs: clear to auscultatio n bilaterally General Appearance: NAD Eyes: PERRLA, sclera clear
--- OUTSIDE RECORDS SUMMARY | 2025-04-13 05:45 | XMS_ITS ---
Author Organization [facility] Address [address] [facility] [address] [place] [id number] Care Team Providers Care Metal Handler Name Role Phone Shahzad Duran Primary Care Provider [phone] Allergies Allergen (clinical drug ingredient) Drug/Non Drug Allergy documented on EMR Reaction Allergy Type Onset Date Status sulfamethoxazole / trimethoprim Bactrim DS rash Drug Allergy Active Neosporin Unknown Drug Allergy Active Results Component Value Reference Range Notes Glucose (In-House) Reviewed date:04/14/2025 02:30:04 PM Interpretation:116 Performing Lab: Notes/Report: 116 blood glucose 116 74 - 106 mg/dL Glycohemoglobin A1c (in hous e) Reviewed date:04/14/2025 02:30:04 PM Interpretation:5.7 Performing Lab: Notes/Report: 5.7 glycohemoglobin 5.7% 5 - 6.5 % P-T4 Free (thyroxine) Reviewed date:04/14/2025 02:30:03 PM Interpretation:Normal Performing Lab: Notes/Report: Test performed by [facility] [address] [place], [place] [address] [address], [place] [address] Morro Macias MD, Gas Distribution Supervisor CLIA: [id number] Thyroxine Free (free T4) 1.14 0.86-1.76 ng/dL P-TSH Reviewed date:04/14/2025 02:30:04 PM Interpretation:Normal Performing Lab: Notes/Report: Test performed by [facility] [address] [place] [address], [place] [id number] Morro Macias MD, Gas Distribution Supervisor CLIA: [id number] TSH 4.13 0.43-5.25 mU/L REASON FOR VISIT 6 month ckup Medications Medication SIG (Take, Route, Frequency, Duration) Notes Start Date End Date Status Nasacort Allergy 24HR 55 MCG/ACT 2 sprays Use two sprays in each nostril at bedtime 07/29/2012 Active Loratadine 10 MG 1 tablet Orally Once a day; Duration: 30 day(s) Active Losartan Potassium 50 MG 1 tablet Orally Once a day 07/15/2024 Active Vital Signs Weight 136.8 lbs 04/13/2025 Blood pressure systolic 130 mm Hg 04/13/20 25 Blood pressure diastolic 80 mm Hg 025 Heart Rate 74 /min 04/13/2025 Height 66 in 04/13/2025 BMI 22.08 kg/m2 04/13/2025 Encounters Encounter Location Date Provider [facility] [address] [facility] [address] [id number] 04/13/2025 Shahzad Duran Hyperlipidemia, unspecified hyperlipidemia type E78.5 ; Acquired hypothyroidism E03.9 ; Essential hypertension I10 ; Osteopenia M85.80 ; Colon cancer screening Z12.11 ; Osteoporosis screening Z13.820 ; Breast cancer screening by mammogram Z12.31 ; Left hand weakness R29.898 ; Tremor of left hand R25.1 ; IFG (impaired fasting glucose) R73.01 and BMI 22.0-22.9, adult Z68.22 Assessments Encounter Date Diagnosis (ICD Code) Assessment Notes Treatment Notes Treatment Clinical Notes Section Notes 04/13/2025 Hyperlipidemia, unspecified hyperlipidemia type (ICD-10 - E78.5) 04/13/2025 Acquired hypothyroidism (ICD-10 - E03.9) 04/13/2025 Essential hypertension (ICD-10 - I10) 04/13/2025 Osteopenia (ICD-10 - M85.80) 04/13/2025 Colon cancer screening (ICD-10 - Z12.11) 04/13/2025 Osteoporosis screening (ICD-10 - Z13.820) 04/13/2025 Breast cancer screening by mammogram (ICD-10 - Z12.31) 04/13/2025 Left hand weakness (ICD-10 - R29.898) 04/13/2025 Tremor of left hand (ICD-10 - R25.1) 04/13/2025 IFG (impaired fasting glucose) (ICD-10 - R73.01) 04/13/2025 BMI 22.0-22.9, adult (ICD-10 - Z68.22) Plan Of Treatment Medication Medication Name Sig Start Date Stop Date Notes Losartan Potassium 50 MG 1 tablet Orally Once a day 2023 Pending Test Test Name Order Date colonoscopy 04/13/2025 DEXA Hip and Spine 04/13/2025 Nerve Conduction Study 04/13/2025 Mammogram 04/13/2025 Next Appt Details Follow Up: 6 Months, Reason: Provider Name:Shahzad Whittington ry, 10/13/2025 09:30:00 AM, [address] [facility], [address] , [place], [place], [id number], Progress Notes * ARIS REYESEDOB:1960 (64 yo F)Acc No.[id number]:04/13/2025 Progress Notes Patient: PAULINE TERRY Provider: Krys Duran M.D. :1960 A ge:64 Y S ex:Female Date:04/13/2025 Address:[address] [place], [place] [id number] Subjective: * Chief Complaints: * 1 . 6 month ckup. * HPI: C ardiology: 64 year old female presents with c/o Blood Pressure Elevated?Pt here for 6 mo f/u on hypertension. Pt states she is doing well and does not have any concerns.? c/o Hyperlipidemia P t is fasting today. E ndocrinology: c/o Hypothyroidism P t here to f/u. * ROS: D ERMATOLOGY: no R srinivasan. n o H felix. G ASTROENTEROLOGY: no N ausea. n o V omiting. N EUROLOGY: Tremor l eft hand, associated with some weakness. ? U ROLOGY: no D ifficulty urinating. n o B lood in urine. 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 Objective: * Vitals: W t: 136.8, Temp: 98.0, BP: 130/80, HR: 74, Nurse: ester, Ht: 66, BMI:22.08. * Examination: G eneral Examination: General Appearance: N AD. N iris: s upple, no lymphadenopathy. H eart: R SR. L ungs: c lear to auscultation. N eurologic Exam: g ait normal, tremor in left hand when elbow and wrist are both in flexed position. S kin: n ormal, no rash. P eripheral pulses: n ormal (2+) bilaterally. E xtremities: n o leg edema. Assessment: * Assessment: 1. H yperlipidemia, unspecified hyperlipidemia type - E78.5 (Primary) 2 . A cquired hypothyroidism - E03.9 3 . E ssential hypertension - I10 ?4. O steopenia - M85.80 5 . C olon cancer screening - Z12.11 6. O steoporosis screening - Z13.820 7 . B reast cancer screening by mammogram - Z12.31 8 . L eft hand weakness - R29.898 9 . T remor of left hand - R25.1 1 0. I FG (impaired fasting glucose) - R73.01 1 1. B HI 22.0-22.9, adult - Z68.22 Plan: * Treatment: Value Reference Range T hyroxine Free (free T4) 1.14 0.86-1.76 - ng/d L * Marcy Cotto 04/14/2025 09:16: 25 AM EDT > LM for pt to return call FionaRivka davidson 04/14/2025 02:29:51 PM EDT > pt informed ?LAB: P-TSH (Collection Date & Time - 04/13/2025 09:38 AM)?Normal* Value Reference Range T SH 4.13 0.43-5.25 - mU/L * Marcy Cotto 04/14/2025 09:16: 25 AM EDT > LM for pt to return call Rivka Jaimes 04/14/2025 02:29:51 PM EDT > pt informed 2.?Essential hypertension? Continue Losartan Potassium Tablet, 50 MG, 1 tablet, Orally, Once a day.?? 3.?Colon cancer screening?Imaging: colonoscopy* Nataliia Christian 04/05 10:13:43 AM EDT > faxed to Dr. Georges office 4.?Osteoporosis screening?Imaging: DEXA Hip and Spine* at Nataliia Quintero 10:24:56 AM EDT > faxed to [facility] Nataliia Reaves 04/23/2025 10:36:51 AM EDT > 05/06/2025 starting at 08:30am 5.?Breast cancer screening by mammogram?Imaging: Mammogram* On or after 04/30/25 at [facility] Nataliia spencer 04/14/2025 10:24:44 AM EDT > faxed to [facility] Nataliia Reaves 04/23/2025 10:35:13 AM EDT > 05/06/2025 at 08:30am 6.?Left hand weakness?Imaging: Nerve Conduction Study* at [facility] 10:30:10 AM EDT > faxed to [facility] Neurology 7.?Tremor of left hand?Imaging: Nerve Conduction Study* at [facility] 10:30:10 AM EDT > faxed to [facility] Neurology 8.?IFG (impaired fasting glucose)?LAB: Glucose (In-House) (Collection Date & Time - 04/13/2025)?116* Value Reference Range b lood glucose 116 74 - 106 mg/dL * Marcy Cotto 04/13/2025 11:22:2 4 AM EDT > Marcy Cotto 04/14/2025 09:16:25 AM EDT > LM for pt to return call FionaRivka davidson 04/14/2025 02:29:51 PM EDT > pt informed ?LAB: Glycohemoglobin A1c (in house) (Collection Date & Time - 04/13/2025)? 5.7* Value Reference Range g lycohemoglobin 5.7% 5 - 6.5 % * Marcy Cotto 04/13/2025 11:22:4 5 AM EDT > Marcy Cotto 04/14/2025 09:16:25 AM EDT > LM for pt to return call FionaRivka davidson 04/14/2025 02:29:51 PM EDT > pt informed * Procedure Codes: G 2211 Complex e/[place], [address] GLUCOSE TEST, 64214 GLYCATED HEMOGLOBIN TEST, Modifiers: QW , 1036F TOBACCO NON-USER, G8420 BMI<30 AND >=22 CALC & DOCU, 3044F HG A1C LEVEL LT 7.0%, G8783 BP SCR PRFRM RCMDD DEFIND SCR INTVL, G8752 MOST RECENT SYSTOLIC BP < 140MM HG, G8754 MOST RECENT DIASTOLIC BP < 90MM HG * Follow Up: 6 Months * Images: Billing Information: * Visit Code: 07158 Office Visit, Est Pt., Level 4. * Procedure Codes: G2211 Complex e/[place]. [address] GLUCOSE TEST. 53634 GLYCATED HEMOGLOBIN TEST. Modifiers: QW 1036F TOBACCO NON-USER. G8420 BMI<30 AND >=22 CALC & DOCU. 3044F HG A1C LEVEL LT 7.0%. G8783 BP SCR PRFRM RCMDD DEFIND SCR INTVL. G8752 MOST RECENT SYSTOLIC BP < 140MM HG. G8754 MOST RECENT DIASTOLIC BP < 90MM HG. * Electronic signature of Marissa Duran MD on 05/06/2025 at 08:21 AM EDT Sign off status: Pending * Provider: Krys Duran M.D. Date: 0 04/13/2025 Generated for Ike webster/Mirza/Ronsmitting on: 0 05/06/2025 08:21 AM EDT History and Physical Notes * HPI (History of Present Illness) Category Sub-Category Detail Notes Category Not es Endocrinology Hypothyroidism Pt here to f/u Cardiology Blood Pressure Elevated Pt here for 6 mo f/u on hypertension. Pt states she is doing well and does not have any concerns Hyperlipidemia Pt is fasting today Examination Category Sub-Category Detail Notes Category Not es General Examination Heart: RSR Lungs: clear to auscultatio n Extremities: no leg edema General Appearance: NAD Skin: normal, no rash Neurologic Exam: gait normal, tremor in left hand when elbow and wrist are both in flexed position Neck: supple, no lymphaden opathy Peripheral pulses: normal (2+) bilatera lly
--- OUTSIDE RECORDS SUMMARY | 2025-05-06 08:22 | XMS_ITS | Patient Health Record ---
Author Organization [facility] Address [address] [place] [id number] Care Team Providers Care Stationary Engineer Supervisor Name Role Phone Waka Shahzad Primary Care Provider [phone] Lio Ascencio [phone] Allergies Allergen (clinical drug ingredient) Drug/Non Drug [...] 107 Performing Lab: Notes/Report: Test performed by [facility] , [address], [place] [address] Morro Macias MD, Personal Lines Insurance Agent CLIA: [id number] Sodium 142 135-145 mmol/L Potassium 4.3 3.5-5.3 [...] Interpretation:Normal Performing Lab: Notes/Report: Test performed by [facility] [address] [place] [address] [place] [address] Morro Macias MD, Personal Lines Insurance Agent CLIA: [id number] Thyroxine Free (free T4) 1.02 0.86-1.76 ng/dL P-Lipid Panel Reviewed date:10/14/2024 10:31:52 AM Interpretation:chol 233, non-hdl 145, ldl 130 Performing Lab: Notes/Report: Test performed by [facility] [address] [place] [address] [address], [place] [address] Morro Macias MD, Personal Lines Insurance Agent CLIA: [id number] Cholesterol 233 <200 mg/dL Triglycerides 74 <150 [...] Interpretation:6.52 Performing Lab: Notes/Report: Test performed by [facility] [address] , [place] [address] Morro Macias MD, Personal Lines Insurance Agent CLIA: [id number] TSH 6.52 0.43-5.25 mU/L P-Microalbumin/Creatinine, R andom Urine Sample Reviewed date:10/14/2024 10:31:52 AM Interpretation:satisfactory Performing Lab: Notes/Report: Test performed by [facility] [address] [place] [address] , [address], [place] [address] Morro Macias MD, Personal Lines Insurance Agent CLIA: [id number] Albumin/Creatinine Ratio, Urine See Comment 0-30 ug/mg Unable to calculate Urine Albumin/Creatinine Ratio when urine creatinine or urine albumin fall outside established reportable range. Microalbumin, Urine, Random <0.3 Creatinine, Urine 52.5 Glucose (In-House) Reviewed date:04/14/2025 02:30:04 PM Interpretation:116 Performing Lab: Notes/Report: 116 blood glucose 116 74 - 106 mg/dL Glycohemoglobin A1c (in hous e) Reviewed date:04/14/2025 02:30:04 PM Interpretation:5.7 Performing Lab: Notes/Report: 5.7 glycohemoglobin 5.7% 5 - 6.5 % P-T4 Free (thyroxine) Reviewed date:04/14/2025 02:30:03 PM Interpretation:Normal Performing Lab: Notes/Report: Test performed by [facility] [address] [place] [address] , [place] [address] Morro Macias MD, Personal Lines Insurance Agent CLIA: [id number] Thyroxine Free (free T4) 1.14 0.86-1.76 ng/dL P-TSH Reviewed date:04/14/2025 02:30:04 PM Interpretation:Normal Performing Lab: Notes/Report: Test performed by [facility] [address] [place] [address] [address], [place] [address] Morro Macias MD, Personal Lines Insurance Agent CLIA: [id number] TSH 4.13 0.43-5.25 mU/L Influenza Screen (in house) Reviewed date:12/22/2024 05:23:26 PM Interpretation: Performing Lab: Notes/Report: results Pos A Covid test (in house) Reviewed date:12/22/2024 05:23:34 PM Interpretation: Performing Lab: Notes/Report: Result: Neg CBC Fingerstick (in house) Reviewed date:07/16/2024 08:52:11 AM Interpretation:Normal Performing Lab: Notes/Report: Normal wbc 7.3 3.5 - 10 lym 19.6 15 - 50 mid 6.1 2 - 15 gran 74.3 35 - 80 rbc 4.59 3.5 - 5.5 hgb 13.6 11.5 - 16.5 hct 41.8 35 - 55 mcv 91.1 75 - 100 mch 29.7 25 - 35 mchc 32.6 31 - 38 plat 213 100 - 400 Medications Medication SIG (Take, Route, Frequency, Duration) Notes Start Date End Date Status Nasacort Allergy 24HR 55 MCG/ACT 2 sprays Use two sprays in each nostril at bedtime 07/29/2012 Active Loratadine 10 MG 1 tablet Orally Once a day; Duration: 30 day(s) Active Losartan Potassium 50 MG 1 tablet Orally Once a day 07/15/2024 Active Immunizations Vaccine Route Administration Date Status Comme nts COVID 19 Moderna Unknown 01/05/2021 Administered COVID 19 Moderna Unknown 02/02/2021 Administered COVID 19 Moderna Unknown 09/07/2021 Administered DT, 7 YEARS OR OLDER Unknown 01/10/1997 Administered Fluzone Intradermal Quad private(18-64yrs) ID Intradermal 07/25/2016 Administered Fluzone Quad (6months&older) IM Intramuscular 07/19/2015 Administered Fluzone Quad (6months&older) IM Intramuscular 08/02/2017 Administered Fluzone Quad (6months&older) IM Intramuscular 08/08/2018 Administered Fluzone Quad (6months&older) IM Intramuscular 08/13/2019 Administered Fluzone Quad (6months&older) IM Intramuscular 07/27/2020 Administered Fluzone Quad (6months&older) IM Intramuscular 08/10/2021 Administered Fluzone Quad (6months&older) IM Intramuscular 08/21/2022 Administered Fluzone Quad (6months&older) IM Intramuscular 08/15/2023 Administered PNEUMOVAX 23 VACCINE IM Intramuscular 10/13/2024 Administe red Shingrix IM Intramuscular 10/07/2019 Administered Shingrix IM Intramuscular 03/02/2020 Administered Tetanus Tdap-Adacel (over 7yrs) IM Intramuscular 05/30/2012 Administered Tetanus Tdap-Adacel (over 7yrs) IM Intramuscular 12/02/2015 Administered xFluzone Intradermal (18-64yrs)-trivalent ID Intradermal 08/22/2013 Administered xFluzone Intradermal (18-64yrs)-trivalent ID Intradermal 08/14/2014 Administered Problems Problem Type SNOMED Code ICD Code Onset Dates Problem Status W/U Status Risk Notes Problem Sinusitis (78856965) Sinusitis (J32.9) Active confirmed Problem Essential hypertension (89599808) Essential hypertension (I10) Active confirmed Problem Abnormal mammogram (797427588) Abnormal mammogram (R92.8) Active confirmed Problem Osteopenia (452972472) Osteopenia (M85.80) Active confirmed Problem History of anemia (742379881) History of anemia (Z86.2) Active confirmed Problem Acquired hypothyroidism (792604215) Acquired hypothyroidism (E03.9) Active confirmed Problem Hyperlipidaemia (59684158) Hyperlipidemia, unspecified hyperlipidemia type (E78.5) Active confirmed Problem Impaired fasting glycaemia (647954588) IFG (impaired fasting glucose) (R73.01) Active confirmed Problem Arthropathy of cervical spine facet joint (disorder) (296080743) Facet arthropathy, cervical (M47.812) Active confirmed Problem Cervical arthritis (disorder) (898440614) Cervical spine arthritis (M47.812) Active confirmed Vital Signs Heart Rate 74 /min 04/13/2025 Blood pressure diastolic 80 mm Hg 04/13/2025 Height 66 in 04/13/2025 Blood pressure systolic 130 mm Hg 04/13/2025 Weight 136.8 lbs 04/13/2025 BMI 22.08 kg/m2 04/13/2025 Encounters Encounter Location Date Provider Diagnosis [facility] [address] [place], [place] [id number] 07/15/2024 Shahzad Waka Essential hypertensi on I10 and LAD (lymphadenopathy), cervical R59.0 [facility] [address] [place], [place] [id number] 08/05/2024 R Jimy [place] Dermatitis L30.9 [facility] [address] [place], [place] [id number] 10/13/2024 Shahzad Waka Essential hypertensi on I10 ; Hyperlipidemia, unspecified hyperlipidemia type E78.5 ; IFG (impaired fasting glucose) R73.01 ; Acquired hypothyroidism E03.9 and Encounter for immunization Z23 [facility] [address] [place], [place] [id number] 12/22/2024 Shahzad Waka Influenza A J10.1 [facility] [address] [place], [place] [id number] 04/13/2025 Shahzad Waka Hyperlipidemia, unspecified hyperlipidemia type E78.5 ; Acquired hypothyroidism E03.9 ; Essential hypertension I10 ; Osteopenia M85.80 ; Colon cancer screening Z12.11 ; Osteoporosis screening Z13.820 ; Breast cancer screening by mammogram Z12.31 ; Left hand weakness R29.898 ; Tremor of left hand R25.1 ; IFG (impaired fasting glucose) R73.01 and BMI 22.0-22.9, adult Z68.22 [facility] [address] [place], [place] [id number] 07/28/2024 Shahzad Waka [facility] [address] [place], [place] [id number] 10/14/2024 Shahzad Waka [facility] [address] [place], [place] [id number] 12/06/2024 Shahzad Waka [facility] [address] [place], [place] [id number] 01/06/2025 Shahzad Waka Essential hypertensi on I10 Assessments Encounter Date Diagnosis (ICD Code) Assessment Notes Treatment Notes Treatment Clinical Notes Section Notes 07/15/2024 Essential hypertension (ICD-10 - I10) 07/15/2024 LAD (lymphadenopathy), cervical (ICD-10 - R59.0) 08/05/2024 Dermatitis (ICD-10 - L30.9) -- Likely contact dermatitis. Doubt reaction to amoxicillin or Diflucan 10/13/2024 Essential hypertension (ICD-10 - I10) 10/13/2024 Hyperlipidemia, unspecified hyperlipidemia type (ICD-10 - E78.5) 12/22/2024 Influenza A (ICD-10 - J10.1) 01/06/2025 Essential hypertension (ICD-10 - I10) 04/13/2025 Acquired hypothyroidism (ICD-10 - E03.9) 04/13/2025 Hyperlipidemia, unspecified hyperlipidemia type (ICD-10 - E78.5) 04/13/2025 Essential hypertension (ICD-10 - I10) 10/13/2024 IFG (impaired fasting glucose) (ICD-10 - R73.01) 10/13/2024 Acquired hypothyroidism (ICD-10 - E03.9) 04/13/2025 Osteopenia (ICD-10 - M85.80) 04/13/2025 Colon cancer screening (ICD-10 - Z12.11) 10/13/2024 Encounter for immunization (ICD-10 - Z23) 04/13/2025 Osteoporosis screening (ICD-10 - Z13.820) 04/13/2025 Breast cancer screening by mammogram (ICD-10 - Z12.31) 04/13/2025 Left hand weakness (ICD-10 - R29.898) 04/13/2025 Tremor of left hand (ICD-10 - R25.1) 04/13/2025 IFG (impaired fasting glucose) (ICD-10 - R73.01) 04/13/2025 BMI 22.0-22.9, adult (ICD-10 - Z68.22) Plan Of Treatment Pending Test Test Name Order Date colonoscopy 04/13/2025 DEXA Hip and Spine 04/13/2025 Nerve Conduction Study 04/13/2025 Mammogram 04/13/2025 H-COVIDPCR 09/14/2021 Next Appt Details Provider Name:Shahzad Whittington ry, 10/13/2025 09:30:00 AM, [address], [address], [place], [place], [id number], Insurance Providers Payer Name Payer Address Payer Phone Subscriber Number Group Number Insured Name Patient Relationship to Insured Coverage Start Date Coverage End Date [employer] [address] [address] [place], [place] [id number] PAULINE REYES Self - patient is the insured Medications Administered Medication Instructions Date of Administration Dosage Notes Dexamethasone 03/28/2012 1.0 mL Dexamethasone 01/08/2018 2 mL Toradol 05/27/2021 30 mg Medical (General) History Medical History History ICD Code 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
--- NOTE | 2025-05-06 08:26 | MM_ITS ---
PROCEDURE INFORMATION: Exam: MG Bilateral Screening 3D Mammography Exam date and time: 05/06/2025 8:32 AM Age: 64 years old Clinical indication: Screening examination TECHNIQUE: Imaging protocol: Bilateral Screening tomosynthesis and 2D mammography including computer-aided detection (CAD) when performed. COMPARISON: 1. MG MM DIG SCREENING MAMM BI W/CAD 04/30/2024 7:55 AM 2. MG MM DIG SCREENING MAMM BI W/CAD 04/27/2023 10:41 AM FINDINGS: MAMMOGRAPHY: Breast composition: There are scattered areas of fibroglandular density. Mass: None. Architectural distortion: None. Calcifications: No suspicious calcifications. Asymmetric density: None. Skin thickening: None. Axillary adenopathy: None. IMPRESSION: No mammographic evidence of malignancy. Annual screening is recommended unless otherwise clinically indicated. ASSESSMENT: BI-RADS Category 1: Negative.
--- NOTE | 2025-05-06 09:05 | XR_ITS ---
FINAL REPORT TECHNIQUE: Bone densitometry calculations of the lumbar spine and bilateral hips were obtained. CLINICAL HISTORY: SCREENING COMPARISON: 04/28/2022 FINDINGS: Using L1-4, the bone mineral density of the spine is 0.947 g/cm2, corresponding to T-score of -0.9. Using the left hip, the bone mineral density of the femoral neck is 0.637 g/cm2, corresponding to a T-score of -1.9. Using the right hip, the bone mineral density of the femoral neck is 0.700 g/cm?, corresponding to a T-score of -1.3. NOTE: T-score: Standard deviation compared with peak bone mass of young adult mean. *Following the recommendations of the International Society of Bone densitometry, classification of hip BMD is based on the lower of two T-scores; total hip or femoral neck. IMPRESSION: Diminished bone mineral density of the bilateral hips consistent with osteopenia. Normal bone mineral density of the lumbar spine. Reviewed, Interpreted and Dictated by Asael Ashley MD Transcribed by Patsy Hess Authenticated and [facility]
== END 2025-05-06 23:59 | disposition home or self-care (01) ==
LOC: RAD 08:19
PROVIDERS: PCP Family Medicine; Visit Provider Family Medicine
DX: Z12.31 Encounter for screening mammogram for malignant neoplasm of breast (principal); M85.852 Other specified disorders of bone density and structure, left thigh; M85.851 Other specified disorders of bone density and structure, right thigh; R92.323 Mammographic fibroglandular density, bilateral breasts; Z13.820 Encounter for screening for osteoporosis
CPT/HCPCS: 77063; 77067; 77080

== ENCOUNTER 2025-07-02 08:01 | Day surgery (SDC) | payer MEDICARE, SELFPAY ==
[2025-06-30 13:52] VITALS: BMI 22.1
--- NOTE | 2025-07-01 15:20 | P.HP_ITS ---
History of Present Illness *Admission Date: 07/02/25 *Reason for visit:: Personal history of colon polyps *History of present illness: Mrs. Reyes is a 65-year-old female who is here for screening/surveillance colonoscopy secondary to a history of colon polyps. The patient did have a colo noscopy in June 2022 (Bravo Rivas MD) and had multiple polyps removed. The majority of these polyps were hyperplastic but there was a single serrated adenoma at the hepatic flexure. The examination is deemed medically necessary for screening/surveillance colonoscopy. The patient has been seen, interviewed and examined prior to the procedure by both myself and the anesthesia provider. [facility] Disclaimer: The information contained in this section may have been updated after the patient was seen, as this information can be updated by other users. Medical History Arthritis Surgical History H/O: hysterectomy Family History Other Diabetes Hypertension Social History Smoking Status: Never smoker second hand exposure: No alcohol intake: never substance use type: denies use current occupational status: retired Travel in the last 8 weeks?: None household members: spouse housing: house current occupational exposures/hazards: No caffeine: Yes Have you lived/traveled outside [place] in past 30 days?: No Contact w/someone who lives/traveled outside [place] past 30 days?: No Exposure to someone with infectious disease in past 14 days?: No Do you have a fever (greater than 100.4 F or 38 C)?: No Have you tested positive for COVID-19?: No Exposed to someone with COVID-19 in past 14 days?: No Do you have a sore throat?: No Do you have a cough?: No Do you have any weakness?: No Do you have any diarrhea?: No Are you experiencing any unusual bleeding?: No Do you have any muscle aches/pain?: No Do you have any abdominal pain?: No Are you experiencing loss of taste or smell?: No Other Medical History Have you received the Flu Vaccine for this season: Yes Have you received the Pneumonia Vaccine: Yes Review of Systems Review of Systems Review of systems (narrative): Negative *Cardiovascular Comments: Negative *Gastrointestinal Comments: Negative *Genitourinary Comments: Negative *Musculoskeletal Comments: Negative *Neurologic Comments: Negative Meds Home Medications and Allergies Home Medications ?Medication ?Instructions ?Recorded ?Confirmed ?Type loratadine 10 mg tablet (Claritin) 10 mg PO DAILY juanita rgies 10/03/18 07/02/25 History triamcinolone acetonide 55 mcg 2 spray intranasal TESFAYE Y 09/19/22 07/02/25 History nasal spray aerosol (Nasacort Allergy) losartan 50 mg tablet 50 mg PO DAILY 09/11/2406/06 History sodium,potassium,mag sulfates 17.5 See Rx Instructions PO .COMPLEX 06/18/25 07/02/25 Rx gram-3.13 gram-1.6 gram oral soln #354 mL (Suprep Bowel Prep Kit) New Prescriptions to Start Prescriptions: Allergies Allergy/AdvReac Type Severity Reaction Status Date / Time Sulfa (Sulfonamide Allergy Severe Hives Verified 07/02/25 08:52 Antibiotics) Latex, Natural Rubber Allergy Rash Verified 07/02/25 08:52 BANDAIDS Allergy Unknown I-RASH Uncoded 09/11/24 14:06 From NEOSPORIN TP OIN Allergy Unknown I-RASH Uncoded 09/11/24 14:06 Exam Data for Last 24 hours I & O for Last 24 hours: Intake & Output 06/28/25 06/29/25 06/30/25 07/01/25 23:59 23:59 23:59 23:59 Weight 137 lb *Routine HEENT Exam Head: Present normocephalic Eye: Present EOMI and PERRL ENT: Present mucous membranes moist *Routine Neck Exam Neck: Present supple *Routine Respiratory Exam Respiratory: Present CTA bilaterally *Routine Cardiovascular Exam Cardiovascular: Present RRR *Routine Abdominal Exam Abdominal: Present soft and normoactive bowel sounds; Absent tenderness *Routine Rectal Exam Rectal:: deferred *Routine Genitalia Exam Genitalia:: deferred *Routine Extremities Exam Extremities: Absent cyanosis, clubbing or edema *Routine Skin Exam Skin: Present warm; Absent rash *Routine Neurological Exam Neurological: Present alert and oriented X3 Assessment and Plan *Assessment and plan (1) Personal history of adenomatous and serrated colon polyps: Status: Acute Category: Medical Code(s): Z86.0101 - Personal history of adenomatous and serrated colon polyps (2) Screening for colon cancer: Status: Acute Category: Medical Code(s): Z12.11 - Encounter for screening for malignant neoplasm of colon Plan A/P: 1. Personal history of an adenomatous colon polyp (serrated adenoma) is the preprocedural diagnosis. The patient will be anesthetized/sedated using MAC sedation. The patient has been seen and examined. Cardiac and lung assessment prior to the examination is stable. Proceed with planned screening/surveillance colonoscopy.
[2025-07-02] MEDS: LACTATED RINGERS 1000ML 1,000 ML 50 ML IV (08:51)
[2025-07-02 08:53] VITALS: BP 158/91; PULSE 72; RESP 18; TEMP 36.4; O2SAT 100
--- NOTE | 2025-07-02 09:11 | EXP.ANES.CKL ---
[facility] Disclaimer: The information contained in this section may have been updated after the patient was seen, as this information can be updated by other users. Medical History Arthritis Surgical History H/O: hysterectomy Family History Other Diabetes Hypertension Social History Smoking Status: Never smoker second hand exposure: No alcohol intake: never substance use type: denies use current occupational status: retired Travel in the last 8 weeks?: None household members: spouse housing: house current occupational exposures/hazards: No caffeine: Yes Have you lived/traveled outside [place] in past 30 days?: No Contact w/someone who lives/traveled outside [place] past 30 days?: No Exposure to someone with infectious disease in past 14 days?: No Do you have a fever (greater than 100.4 F or 38 C)?: No Have you tested positive for COVID-19?: No Exposed to someone with COVID-19 in past 14 days?: No Do you have a sore throat?: No Do you have a cough?: No Do you have any weakness?: No Do you have any diarrhea?: No Are you experiencing any unusual bleeding?: No Do you have any muscle aches/pain?: No Do you have any abdominal pain?: No Are you experiencing loss of taste or smell?: No [facility] Anesthesia Checklist Patient Identification Patient Identification: Arm Band Structural Data Admitted From: Home Planned Operative Procedure/s: Colonoscopy Consent for Planned Operative Procedure(s) Verified: Yes Verified Documents: Surgical Consent and History and Physical NPO Status Verified Time NPO: 00:00 Additional verifications Anesthesia Reactions: No Airway Assessment Mallampati Score:: Class II C-Spine Mobility Assessed: Yes TMJ Mobility Assessed: Yes Dentition: Good Dentition Neurological Assessment Level of Consciousness: Awake, Alert and Appropriate Anesthesia Plan Anesthesia Risk discussed: Yes Anesthesia Plan: Verified ASA Class: II Anesthesia Type: MAC
--- NOTE | 2025-07-02 09:24 | P.PCN_ITS ---
[facility] Procedure Note Date: 07/02/25 Time: 09:50 Procedure Note:: Colonoscopy Procedure Report: Colonoscopy with cold snare polypectomy Endoscopist: Madhu Georges II, MD Referring physician: Shahzad Duran MD Date of Procedure: July 02, 2025 Equipment: Olympus [id number] adult colonoscope Sedation: MAC sedation Indication: Mrs. Reyes is a 65-year-old female who is here for screening/surveillance colonoscopy secondary to a history of colon polyps. The patient did have a colonoscopy in June 2022 (Bravo Rivas MD) and had multiple polyps removed. The majority of these polyps were hyperplastic but there was a single serrated adenoma at the hepatic flexure. The patient reports no abdominal pain, weight loss, change in her bowel habits or rectal bleeding. She reports no family history of colon cancer. Her father had multiple polyps removed (unspecified). Procedure: Prior to the procedure, a history and physical exam was performed, and patient's medications and allergies were reviewed. The risks, benefits and alternatives of the sedation and procedure were discussed with the patient. All questions were answered and informed consent was obtained. The patient was brought to the procedure room. Patient identification and proposed procedure were verified by the physician and the nurse. The patient was placed in a left lateral decubitus position and the scope was passed under direct vision. Throughout the procedure, the patient's blood pressure, pulse, and oxygen saturations were monitored continuously. The colonoscopy was accomplished without difficulty. The patient tolerated the procedure well. Findings: On digital rectal examination there was normal rectal tone. There were no external hemorrhoids. The colonoscope was introduced through the anal canal to the rectum and advanced to the cecum. The ileocecal valve and appendiceal orifice were identified. The scope was advanced a short distance into the ileum which appeared grossly normal. The scope was then withdrawn into the colon. The cecum and ascending colon were normal. There was a single 4 to 5 mm transverse polyp removed via cold snare polypectomy. The descending, sigmoid and rectum were normal. There were mildly scattered shallow diverticuli in the sigmoid colon. Upon retroflexion within the rectum there were grade 1-2 internal hemorrhoids. The preparation was excellent throughout with [place] Preparation Score of 9. The cecal time was 12 minutes. Impression: 1. Diminutive transverse colon polyp 2. Mild sigmoid diverticulosis 3. Grade 1-2 internal hemorrhoids Plan: I will follow-up the polyp histology and recommend repeat screening/surveillance colonoscopy again in 5 to 10 years based upon the pathology.
[2025-07-02 09:52] VITALS: BP 105/67; PULSE 74; RESP 15; TEMP 36.3; O2SAT 99
[2025-07-02 10:02] VITALS: BP 108/68; PULSE 69; RESP 18; TEMP 36.3; O2SAT 98
[2025-07-02 10:12] VITALS: BP 124/76; PULSE 67; RESP 18; TEMP 36.3; O2SAT 99
[2025-07-02 10:22] VITALS: BP 120/79; PULSE 64; RESP 18; TEMP 36.3; O2SAT 99
== END 2025-07-02 10:40 | disposition home or self-care (01) ==
PROVIDERS: PCP Family Medicine; Visit Provider Internal Medicine Gastroenterology
PROC: 0DJD8ZZ Inspection of Lower Intestinal Tract, Via Natural or Artificial Opening Endoscopic (ICD-10-PCS; CPT 45378; principal; 2025-07-02 09:30)
DX: Z12.11 Encounter for screening for malignant neoplasm of colon (principal); K63.5 Polyp of colon; K57.30 Diverticulosis of large intestine without perforation or abscess without bleeding; K64.0 First degree hemorrhoids; K64.1 Second degree hemorrhoids; I10 Essential (primary) hypertension; Z88.2 Allergy status to sulfonamides; Z86.0101 Personal history of adenomatous and serrated colon polyps
CPT/HCPCS: 45385; 88305; J2003; J2704; J7120